=== PATIENT | female | born 1985 | race Caucasian/White ===

== ENCOUNTER 2022-08-30 16:51 | Inpatient (IN) ==
[2022-08-30] MEDS ORDERED: PROPOFOL 200 MG/20 ML VIAL IV ONE (17:01)
[2022-08-30] MEDS ORDERED: NITROGLYCERIN 0.6 MG/HR PATCH TD ONE (17:04)
[2022-08-30] MEDS ORDERED: INDOMETHACIN 25 MG CAPSULE PO ONE (17:04)
[2022-08-30] MEDS ORDERED: HYDROmorphone 1 MG/ML SYRINGE IV ONE (17:09)
[2022-08-30] MEDS ORDERED: MIDAZOLAM 2 MG/2 ML VIAL IV ONE (17:15)
[2022-08-30] MEDS ORDERED: LACTATED RINGERS 1,000 ML IV SCH ×2 (17:15→18:30)
--- NOTE | 2022-08-30 17:15 | Emergency Department Note ---
HPI General Chief complaint: Abdominal Pain Stated complaint: ERCP w/ Scarlett Time Seen by Provider: 08/30/22 17:12 Source: patient Mode of arrival: EMS Limitations: no limitations History of Present Illness HPI Narrative: 37-year-old female with no significant medical history and recent laparoscopic cholecystectomy with Dr. Thompson on 08/22 presents to the ER by ED to ED transfer for bile leak. She was evaluated at [facility] this morning after she woke up with severe abdominal pain. She was allegedly diagnosed with bile leak and underwent an ERCP with Dr. El and he was unable to pass the catheter. The procedure was aborted and at that point he spoke with Dr. Pantoja who accepted the patient for ERCP. The patient received Zosyn at approximately 1 PM this afternoon. She is currently hemodynamically stable and afebrile. Previous abdominal surgeries include a tubal ligation and appendectomy. Related Data Allergies Allergy/AdvReac Type Severity Reaction Status Date / Time No Known Drug Allergies Allergy Verified 08/30/22 19:38 Review of Systems ROS ROS Narrative: Narrative: All systems ED: reviewed and negative except as stated. [facility] Narrative Patient History Narrative: Narrative: Medical/Surgical/Family History All Active Problems (Updated 08/30/22 @ 22:42 by Jocelynn Jane PA-C) Bile leak, postoperative (Acute) Exam Narrative Narrative: General: AOx3, NAD, nontoxic appearing. Pleasant and conversant. HEENT: PERRL, EOMI, normocephalic. Moist mucous membranes. Normal facies and normal dentition. Chest: Symmetric, no pain to palpation Respiratory: Lungs clear to auscultation bilaterally. No respiratory distress. Unlabored breathing. Heart: Regular rate and rhythm, no murmurs/clicks/rubs. Abdomen: Deferred Extremities: Warm and well perfused. No edema. DP 2+ bilaterally. No venous stasis. Neuro: No focal deficits. Cranial nerves II-XII grossly normal. Skin: Warm dry, no rashes or lesions, no cyanosis. Psych: Normal mood and affect Heme/Lymph: No abnormal bruising General Limitations: no limitations Course Vital Signs Vital signs: Vital Signs Temperature 98.1 F 08/30/22 16:52 Pulse Rate 96 H 08/30/22 16:52 Respiratory Rate 18 08/30/22 16:52 Blood Pressure 144/90 08/30/22 16:52 Pulse Oximetry (%) 99 08/30/22 16:52 Oxygen Delivery Method Room Air 08/30/22 16:52 Temperature 98.1 F 08/30/22 18:11 Pulse Rate 99 H 08/30/22 20:20 Respiratory Rate 17 08/30/22 20:20 Blood Pressure 115/72 08/30/22 20:20 Pulse Oximetry (%) 95 08/30/22 20:20 Oxygen Delivery Method Room Air 08/30/22 20:20 Oxygen Flow Rate (L/min) 6 08/30/22 18:05 MDM MDM Narrative Medical decision making narrative: Bile leak Patient is going for an ERCP with Dr. Pantoja and will be admitted to the hospitalist service following her procedure. Dr. Pantoja is in the room evaluating the patient currently. She is admitted inpatient. Discharge Plan Patient/Caregiver Discharge Instructions Pt seen by [facility]/PA only: Yes Clinical Impression: Bile leak, postoperative Patient Disposition: Xfer As Outpt/Obs ([facility]) Discharge Date/Time: 08/30/22 17:20
[2022-08-30] MEDS ORDERED: IOPAMIDOL 100 ML BOTTLE IV ONE (18:16)
[2022-08-30] MEDS ORDERED: HYDROmorphone 0.5 MG/0.5 ML SYRINGE IV PRN (18:21)
[2022-08-30] MEDS ORDERED: ONDANSETRON 4 MG/2 ML VIAL IV PRN (18:22)
[2022-08-30] MEDS ORDERED: GENTAMICIN SULFATE 80 MG/2 ML VIAL IR ONE (18:33)
--- NOTE | 2022-08-30 18:39 | Internal Med History&Physical ---
HPI History of Present Illness Patient information: Note initiated : 08/30/22 at 6:38 pm Service Date, if different from initiated Date: [] Patient: Anyi Zhang a 37 y/o F admitted on 08/30/22 for ERCP w/ Scarlett. Chief Complaint: [] History of present illness: Ms. Zhang is a 37 year old Female with with a history of cholelithiasis who recently underwent a laparoscopic cholecystectomy. Early on the day of this admission, the patient developed severe abdominal pain for which she was seen at the [facility] emergency department. The patient was found to have a biliary leak, likely a complication from the recent cholecystectomy. An ERCP was attempted to stop the leak at that hospital however was not successful. The patient was transferred to [facility] at Dr. Pantoja's request to perform an ERCP and attempt to stop the biliary leak. Hospital medicine was later notified of this plan, I was reluctant to accept this patient given the failed ERCP at the [facility] however Dr. Pantoja felt the chances of complications were low and that he would be able to stop the biliary leak. The patient underwent repeat ERCP soon after arrival. Dr. Freeman feels that he was able to stop the leak with a stent placement. Following the ERCP, the patient will be admitted for observation following the procedure. Review of systems Constitutional: no fever, fatigue, or weight loss Gastrointestinal: Positive for abdominal pain Physical exam Head: Atraumatic, normal inspection. Eyes: normal appearance, no scleral icterus. Neck: full ROM Respiratory: no respiratory distress. Cardiovascular: Tachycardia GI/Abdominal: Tenderness present Extremities: full range of motion, nontender. Neurological: CN II-XII intact, intact motor, intact sensation. Psychiatric: normal mood. Skin: warm, normal color EXAM Constitutional Vitals: Temp Pulse Resp BP Pulse Ox O2 Del Method O2 Flow Rate 98.1 F 114 H 16 136/94 98 Room Air 6 08/30/22 18:10 08/30/22 18:10 08/30/22 18:10 08/30/22 18:10 08/30/22 18:10 08/30/22 18:10 08/30/22 18:05 A/P Narrative A/P Narrative: Assessment: 37-year-old female with a history of recent laparoscopic cholecyst ectomy complicated by bile duct leak who underwent ERCP and stent placement to fix the bile duct leak. #Bile duct leak status post ERCP 08/30/22 #Bile duct leak likely secondary to failed surgical stable #History of cholelithiasis status post recent laparoscopic cholecystectomy Plan -Analgesics as needed. -IV fluid for now. -Morning CBC, CMP, lipase. -GI following. -Disposition: Admit to observation. Time Spent With Patient Time: Total time spent is greater than 50% in coordination of care (as documented) at patient's floor/unit and/or counseling patient:
[2022-08-30] MEDS ORDERED: ACETAMINOPHEN 325 MG TABLET PO PRN (18:41)
[2022-08-30] MEDS ORDERED: IOPAMIDOL 100 ML BOTTLE IJ ONE (18:43)
[2022-08-30] MEDS: LACTATED RINGERS 1,000 ML IV SCH (20:12)
[2022-08-30] MEDS: 0.9 % SODIUM CHLORIDE 10 ML SYRINGE IV SCH (20:12)
[2022-08-30] MEDS: HYDROmorphone 0.5 MG/0.5 ML SYRINGE IV PRN (20:12)
[2022-08-31] MEDS: HYDROmorphone 0.5 MG/0.5 ML SYRINGE IV PRN ×4 (01:42→16:27)
[2022-08-31] MEDS: HYDROcodone/APAP 5/325MG TABLET PO PRN ×3 (04:27→13:34)
[2022-08-31] MEDS: 0.9 % SODIUM CHLORIDE 10 ML SYRINGE IV SCH ×3 (04:28→22:14)
[2022-08-31 06:14] LABS: Basophils # (Auto) 0.02 K/mcL (0.00-0.30); Basophils % (Auto) 0.1 % (0.0-2.0); Eosinophils # (Auto) 0.01 K/mcL (0.00-0.70); Eosinophils % (Auto) 0.1 % (0.0-7.0); Hematocrit 33.9 % (34.1-44.9); Hemoglobin 11.3 g/dL (11.2-15.7); Lymphocytes % (Auto) 5.8 % (15.5-49.0); Mean Cell Volume 93.6 fL (80.0-100.0); Mean Corpuscular HGB Conc 33.3 g/dL (31.0-36.0); Mean Platelet Volume 10.7 fL (8.8-12.5); Monocytes # (Auto) 1.18 K/mcL (0.10-0.90); Monocytes % (Auto) 7.6 % (1.0-12.0); Neutrophils % (Auto) 85.9 % (38.0-78.0); Platelet Count 223 K/mcL (140-440); RBC 3.62 M/mcL (3.59-5.38); WBC 15.5 K/mcL (4.5-11.0)
[2022-08-31 06:26] LABS: ALT/SGPT 37 U/L (<40); AST/SGOT 28 U/L (<32); Albumin 3.8 gm/dL (3.2-5.2); Albumin/Globulin Ratio 1.5 (1.0-2.3); Alkaline Phosphatase 44 U/L (39-117); Bilirubin,Total 0.6 mg/dL (0.1-1.0); Blood Urea Nitrogen 8 mg/dL (6-20); Calcium 8.6 mg/dL (8.6-10.4); Carbon Dioxide 22 mmol/L (22-30); Chloride 104 mmol/L (96-108); Globulin 2.5 gm/dL (2.2-3.7); Glomerular Filtration Rate 124; Glucose 114 mg/dL (70-105)
[2022-08-31] MEDS: LACTATED RINGERS 1,000 ML IV SCH ×2 (06:26→19:11)
--- NOTE | 2022-08-31 09:45 | Discharge Summary ---
Discharge Provider Provider IMPORTANT FOLLOW-UP INFORMATION FOR PCP: Patient information: Note initiated : 08/31/22 at 9:43 am Service Date, if different from initiated Date: [] Patient: Anyi Zhang 37 y/o F admitted on 08/30/22 for ERCP w/ Scarlett. Chief Complaint: [] Date of admission: 08/30/22 18:15 Discharge date: 08/31/22 Primary care physician: Faiza Vaca Consults: 08/30/22 17:24 Consult to Physician [CONS] Routine Comment: Consulting Provider: Rich Curtis Reason For Exam: Physician to Consult Consult to Physician [CONS] Routine Comment: Consulting Provider: Jose Pantoja Reason For Exam: Physician to Consult COURSE Hospital Course Hospital course: Ms. Zhang is a 37 year old Female with with a history of cholelithiasis who recently underwent a laparoscopic cholecystectomy. Early on the day of this admission, the patient developed severe abdominal pain for which she was seen at the [facility] emergency department. The patient was found to have a biliary leak, likely a complication from the recent cholecystectomy. An ERCP was attempted to stop the leak at that hospital however was not successful. The patient was transferred to [facility] at Dr. Pantoja's request to perform an ERCP and attempt to stop the biliary leak. Hospital medicine was later notified of this plan, I was re luctant to accept this patient given the failed ERCP at the [facility] however Dr. Pantoja felt the chances of complications were low and that he would be able to stop the biliary leak. The patient underwent repeat ERCP soon after arrival. Dr. Freeman feels that he was able to stop the leak with a stent placement. Following the ERCP, the patient will be admitted for observation following the procedure. 08/31 Patient's abdominal discomfort have improved, there was a mild increase in lipase however GI feels this is expected given the ERCP. She is able to tolerate oral intake. I spoke with Dr. Pantoja and he feels the patient can discharge to home today. The patient was discharged to home with family. Physical exam Head: Atraumatic, normal inspection. Eyes: normal appearance, no scleral icterus. Neck: full ROM Respiratory: no respiratory distress. Cardiovascular: Tachycardia GI/Abdominal: Tenderness present Extremities: full range of motion, nontender. Neurological: CN II-XII intact, intact motor, intact sensation. Psychiatric: normal mood. Skin: warm, normal color Discharge diagnosis: Bile duct leak Time Spent with Patient Time attestation: Total time spent providing and/or coordinating discharge services: Time spent: Less than 30 minutes EXAM Constitutional Vitals: Temp Pulse Resp BP Pulse Ox O2 Del Method O2 Flow Rate 97.9 F 89 17 106/67 95 Room Air 6 08/31/22 04:08/31/22 04:08/31/22 04:08/31/22 04:08/31/22 04:08/31/22 04:08/30/22 18:05 Discharge Data Data Completed and Pending Labs on day of discharge: Labs from last 24 hours 08/31/22 08/31/22 05:25 05:25 WBC 15.5 H RBC 3.62 Hgb 11.3 Hct 33.9 L MCV 93.6 MCH 31.2 MCHC 33.3 RDW 12.0 Plt Count 223 MPV 10.7 Immature Gran % (Auto) 0.5 Neut % (Auto) 85.9 H Lymph % (Auto) 5.8 L Summers % (Auto) 7.6 Eos % (Auto) 0.1 Baso % (Auto) 0.1 Lymph # (Auto) 0.90 L Summers # (Auto) 1.18 H Eos # (Auto) 0.01 Baso # (Auto) 0.02 Immature Gran # 0.08 H Absolute Neutrophils 13.26 H Sodium 136 Potassium 4.0 Chloride 104 Carbon Dioxide 22 Anion Gap 10.0 BUN 8 Creatinine 0.5 L GFR Calculation 124 Glucose 114 H Calcium 8.6 Total Bilirubin 0.6 AST 28 ALT 37 Alkaline Phosphatase 44 Total Protein 6.3 Albumin 3.8 Globulin 2.5 Albumin/Globulin Ratio 1.5 Lipase 459 H Discharge Plan Patient/Caregiver Discharge Instructions Activity: increase activity as tolerated Diet: Regular Diet Prescriptions: New hydrocodone-acetaminophen 5-325 mg Tablet 1 - 2 tab PO Q4H PRN (Reason: Abdominal Discomfort) Qty: 24 0RF Follow Up Plan Follow up with: Faiza Vaca MD [Primary Care Provider] - Jose Pantoja MD [Physician] - (Post hospital follow-up for GI bleed secondary to duodenal ulcer.) Patient Disposition: Home, Self-Care Overall status at discharge: patient is progressing back to baseline Discharge Orders: Discharge Order (Routine); Ordered 08/31/22 Ordered By: Rich Curtis
--- NOTE | 2022-08-31 13:49 | Internal Med Progress Note ---
SUBJECTIVE Subjective Patient information: Note initiated : 08/31/22 at 1:45 pm Service Date, if different from initiated Date: [] Patient: Anyi Zhang a 37 y/o F admitted on 08/30/22 for ERCP w/ Scarlett. Chief Complaint: [] Interval history: Ms. Zhang is a 37 year old Female with with a history of cholelithiasis who recently underwent a laparoscopic cholecystectomy. Early on the day of this admission, the patient developed severe abdominal pain for which she was seen at the [facility] emergency department. The patient was found to have a biliary leak, likely a complication from the recent cholecystectomy. An ERCP was attempted to stop the leak at that hospital however was not successful. The patient was transferred to [facility] at Dr. Pantoja's request to perform an ERCP and attempt to stop the biliary leak. Hospital medicine was later notified of this plan, I was reluctant to accept this patient given the failed ERCP at the [facility] however Dr. Pantoja felt the chances of complications were low and that he would be able to stop the biliary leak. The patient underwent repeat ERCP soon after arrival. Dr. Freeman feels that he was able to stop the leak with a stent placement. Following the ERCP, the patient will be admitted for observation following the procedure. 08/31 This morning the patient reported her abdominal pain had improved significantly. Lipase was elevated however gastroenterology did not feel that was unexpected given the recent procedures. Gastroenterology felt the patient was ready to discharge and discharge orders were placed however the patient later developed epigastric abdominal pain similar to when she first presented to the emergency department. Discharge canceled. Abdominal 1 view x-ray ordered. Physical exam Head: Atraumatic, normal inspection. Eyes: normal appearance, no scleral icterus. Neck: full ROM Respiratory: no respiratory distress. Cardiovascular: Tachycardia GI/Abdominal: Tenderness present Extremities: full range of motion, nontender. Neurological: CN II-XII intact, intact motor, intact sensation. Psychiatric: normal mood. Skin: warm, normal color Constitutional Vitals: Vital Signs Temp Pulse Resp BP Pulse Ox O2 Del Method O2 Flow Rate 98.0 F 78 20 126/81 96 Room Air 6 08/31/22 12:00 08/31/22 12:08/31/22 12:08/31/22 12:08/31/22 12:00 08/31/22 12:00 08/30/22 18:05 Period Temp Pulse Resp BP Sys/Child Pulse Ox O2 Del Method O2 Flow Rate Last 24 Hr 97.9 F-98.8 F 78-122 12 105-145/67-102 92-100 Nasal Cannula-Room Air 6-6 Intake and Output 08/31/22 08/31/22 08/31/22 03:59 11:59 19:59 Intake Total 450 1067 Output Total 770 Balance -320 1067 Weight 82.513 kg Intake & Output: Intake & Output 08/31/22 08/31/22 08/31/22 03:59 11:59 19:59 Intake Total 450 1067 Output Total 770 Balance -320 1067 Weight 82.513 kg Intake: IV 767 Lactated Ringers 1,000 ml @ 75 767 mls/hr IV .[id number] [facility] Rx#: [id number] Oral 450 300 Output: Void Amount 770 Other: Urine Appearance Clear Urine Color Yellow Urine Odor Normal OBJ DATA Labs 08/31/22 05:25 08/31/22 05:25 Labs: Abnormal Lab Results 08/31/22 08/31/22 05:25 05:25 WBC 15.5 H Hct 33.9 L Neut % (Auto) 85.9 H Lymph % (Auto) 5.8 L Lymph # (Auto) 0.90 L [place] # (Auto) 1.18 H Immature Gran # 0.08 H Absolute Neutrophils 13.26 H Creatinine 0.5 L Glucose 114 H Lipase 459 H Meds: Medications Acetaminophen (Acetaminophen 325 Mg Tablet) 650 mg PO Q6HP PRN; Protocol PRN Reason: Per Pain Protocol/Fever > 101 Hydrocodone Bitart/Acetaminophen (Hydrocodone/Apap 5/325mg Tablet) 1 tab PO Q4HP PRN; Protocol PRN Reason: Per Pain Protocol Last Admin: 08/31/22 13:34 Dose: 1 tab Hydromorphone HCl (Hydromorphone 0.5 Mg/0.5 Ml Syringe) 0.5 mg IV Q2HP PRN; Protocol PRN Reason: Per Pain Protocol Last Admin: 08/31/22 13:35 Dose: 0.5 mg Lactated Ringer's (Lactated Ringers) 1,000 mls @ 75 mls/hr IV .[id number] [facility] Last Admin: 08/31/22 06:26 Dose: 75 mls/hr Ondansetron HCl (Ondansetron 4 Mg/2 Ml Vial) 4 mg IV Q6HP PRN PRN Reason: Nausea And Vomiting Senna (Sennosides 1 Tablet) 2 tab PO HS PRN PRN Reason: constipation Sodium Chloride (0.9 % Sodium Chloride 10 Ml Syringe) 10 ml IV Q8 [facility] Last Admin: 08/31/22 13:34 Dose: 10 ml A/P Narrative A/P Narrative: Assessment: 37-year-old female with a history of recent laparoscopic cholecystectomy complicated by bile duct leak who underwent ERCP and stent placement to fix the bile duct leak. #Abdominal pain #Elevated lipase #Bile duct leak status post ERCP 08/30/22 with biliary stent placement #Bile duct leak likely secondary to failed surgical stable from recent laparoscopic cholecystostomy #History of cholelithiasis status post recent laparoscopic cholecystectomy Plan -Abdominal 1 view x-ray, consider CT abdomen. -Analgesics as needed. -IV fluid. -Clear liquid diet. -Disposition: Inpatient MedSurg. Time Spent With Patient Time: Total time spent is greater than 50% in coordination of care (as documented) at patient's floor/unit and/or counseling patient:
--- NOTE | 2022-08-31 15:22 | XRay Report ---
INDICATION: Abdominal pain, recent ERCP with biliary stent. TECHNIQUE: Supine abdomen. COMPARISON: None FINDINGS:Bowel gas pattern is unremarkable. There is no evidence for mechanical small bowel obstruction. No biliary or portal venous gas. No pneumatosis. Incidental note is made of a biliary catheter in the right upper quadrant IMPRESSION: Negative bowel gas pattern Interpreted and Authenticated by: Sajan Elaine 08/31/22
[2022-08-31] MEDS ORDERED: LACTATED RINGERS 1,000 ML IV SCH (16:38)
[2022-08-31] MEDS ORDERED: HYDROmorphone 0.5 MG/0.5 ML SYRINGE IV PRN ×2 (16:38→16:46)
[2022-08-31] MEDS ORDERED: HYDROmorphone 0.5 MG/0.5 ML SYRINGE ONE (16:55)
[2022-08-31 17:42] LABS: ALT/SGPT 37 U/L (<40); AST/SGOT 28 U/L (<32); Albumin 4.1 gm/dL (3.2-5.2); Albumin/Globulin Ratio 1.3 (1.0-2.3); Alkaline Phosphatase 49 U/L (39-117); Bilirubin,Direct 0.2 mg/dL (<0.3); Bilirubin,Total 0.7 mg/dL (0.1-1.0); Blood Urea Nitrogen 8 mg/dL (6-20); Calcium 8.6 mg/dL (8.6-10.4); Carbon Dioxide 22 mmol/L (22-30); Chloride 101 mmol/L (96-108); Globulin 3.1 gm/dL (2.2-3.7); Glomerular Filtration Rate 117; Glucose 101 mg/dL (70-105); Lactate Dehydrogenase 161 U/L (135-225); Phosphorous 2.2 mg/dL (2.5-4.5); Triglycerides 98 mg/dL (<150)
--- NOTE | 2022-08-31 18:31 | Cat Scan Report ---
INDICATION: Severe abdominal pain after ERCP. This patient has a history of bile leak following cholecystectomy. History is not provided as to whether this was due to injury to the common bile duct or a duct of Luschka. ERCP was performed and a common bile duct stent was placed COMPARISON: Plain film examination dated 08/31/2022 TECHNIQUE: Axial images were obtained through the abdomen and pelvis. Sagittally and coronally reformatted images. 80 mL Isovue 370 injected intravenously. Oral contrast material was not administered FINDINGS: Lung bases:Negative. No pulmonary parenchymal nodule. No pleural fluid or pericardial fluid Liver:Negative. No focal intrahepatic mass. No focal abnormality. Liver contour is smooth. No evidence for cirrhosis Gallbladder, bilary:Previous cholecystectomy. There is a common bile duct stent in place. There is mild pneumobilia. There is inflammatory change and fluid within the gallbladder fossa and twan hepatis. There is moderate peripancreatic inflammatory change and mild fluid. There is mild to moderate fluid within the pelvis. ALPHONSO values are in the 20s. This is consistent with bile leak but is not suggestive of hemoperitoneum. There is no pneumoperitoneum. There are no previous examinations available and it is not determinable whether this intraperitoneal fluid is increasing or decreasing. Spleen:16 mm low-density lesion in the anterior and lateral spleen is consistent with a benign cyst Pancreas:There is no pancreatic mass. There is mild pancreatic parenchymal low density within the body and head of the pancreas. Interstitial edematous pancreatitis is possible. There is no pseudocyst. No pancreatic duct dilatation. No evidence for pancreatic necrosis or abscess. Adrenal glands:Negative Kidneys,ureters,bladder:Probable 2 mm nonobstructing right upper pole renal stone. Kidneys are otherwise negative. No solid or cystic mass. No hydronephrosis. No hydroureter. No ureteral calculus. No bladder stone. No detectable bladder mass. Gastrointestinal:No detectable colonic mass. There is no diverticulitis. Negative small bowel. No mechanical small bowel obstruction. No bowel wall thickening. No focal abnormality. Negative stomach and duodenum. No focal abnormality. Appendix: The appendix is now well visualized. No evidence for appendicitis Vascular:Negative abdominal aorta. Superior mesenteric artery and celiac trunk are normal. Normal opacification of the inferior mesenteric artery Lymphatic:No retroperitoneal or mesenteric adenopathy Mesentery, peritoneum: No pneumoperitoneum. No intra-abdominal abscess. Reproductive:Uterus is retroflexed. No adnexal mass Musculoskeletal:No lumbar compression fractures. Sacrum and pelvis are negative. No hip fracture. No abdominal wall or inguinal hernia IMPRESSION: 1. History of postcholecystectomy bile leak. ERCP performed and common bile duct stent placed 2. There is intraperitoneal fluid within the pelvis. There is inflammatory change and fluid within the gallbladder fossa, twan hepatis, and peripancreatic spaces. 3. There is no pneumoperitoneum. There is no intra-abdominal abscess 4. Pancreas appears somewhat edematous, especially the head and body. Interstitial edematous pancreatitis is possible. There is no pseudocyst or evidence for pancreatic necrosis 5. Probable 2 mm nonobstructing right upper pole renal stone 6. Benign splenic cyst 7. Mild post stent pneumobilia The exam was performed using radiation dose optimization techniques including, but not limited to, automated exposure control, adjustment of the mA and/or kV according to patient size and use of iterative reconstruction technique. Interpreted and Authenticated by: Sajan Elaine 08/31/22
[2022-08-31] MEDS ORDERED: HYDROmorphone 1 MG/ML SYRINGE ONE (18:47)
[2022-08-31] MEDS: ONDANSETRON 4 MG/2 ML VIAL IV PRN (18:51)
[2022-08-31] MEDS ORDERED: fentaNYL 100 MCG/2 ML VIAL IV PRN (19:16)
[2022-08-31] MEDS ORDERED: NALOXONE HCL 0.4 MG/ML VIAL IV PRN (19:19)
[2022-08-31] MEDS: fentaNYL 100 MCG/2 ML VIAL IV PRN ×3 (20:08→22:47)
[2022-08-31] MEDS ORDERED: ACETAMINOPHEN 1,000 MG/100 ML BAG IV SCH (22:15)
[2022-08-31] MEDS ORDERED: PROMETHAZINE 25 MG/ML VIAL ONE (22:24)
[2022-08-31] MEDS ORDERED: KETOROLAC 15 MG/ML VIAL ONE (22:25)
[2022-08-31] MEDS ORDERED: ACETAMINOPHEN 1,000 MG/100 ML BAG IV ONE (22:25)
[2022-08-31] MEDS: PROMETHAZINE 25 MG/ML VIAL IV PRN (22:27)
[2022-08-31] MEDS: KETOROLAC 30 MG/ML VIAL IV SCH (22:34)
[2022-08-31] MEDS: ACETAMINOPHEN 1,000 MG/100 ML BAG IV SCH (23:05)
[2022-09-01] MEDS ORDERED: KETOROLAC 30 MG/ML VIAL IV SCH
[2022-09-01] MEDS: LACTATED RINGERS 1,000 ML IV SCH ×5 (00:56→22:21)
[2022-09-01] MEDS: KETOROLAC 30 MG/ML VIAL IV SCH ×2 (01:09→05:17)
[2022-09-01] MEDS ORDERED: KETOROLAC 15 MG/ML VIAL ONE ×2 (01:09→05:12)
[2022-09-01] MEDS: fentaNYL 100 MCG/2 ML VIAL IV PRN ×18 (01:25→23:37)
[2022-09-01] MEDS: ONDANSETRON 4 MG/2 ML VIAL IV PRN (03:12)
[2022-09-01] MEDS ORDERED: ACETAMINOPHEN 1,000 MG/100 ML BAG IV ONE (05:13)
[2022-09-01] MEDS: ACETAMINOPHEN 1,000 MG/100 ML BAG IV SCH ×3 (05:27→21:28)
[2022-09-01] MEDS: 0.9 % SODIUM CHLORIDE 10 ML SYRINGE IV SCH ×3 (06:01→21:29)
[2022-09-01 07:19] LABS: ALT/SGPT 26 U/L (<40); AST/SGOT 20 U/L (<32); Albumin 3.7 gm/dL (3.2-5.2); Albumin/Globulin Ratio 1.5 (1.0-2.3); Alkaline Phosphatase 43 U/L (39-117); Bilirubin,Direct < 0.2 mg/dL (0-0.3); Bilirubin,Total 0.5 mg/dL (0.1-1.0); Blood Urea Nitrogen 10 mg/dL (6-20); Calcium 8.2 mg/dL (8.6-10.4); Carbon Dioxide 24 mmol/L (22-30); Chloride 102 mmol/L (96-108); Globulin 2.4 gm/dL (2.2-3.7); Glomerular Filtration Rate 124; Glucose 101 mg/dL (70-105); Lactate Dehydrogenase 144 U/L (135-225); Phosphorous 3.3 mg/dL (2.5-4.5); Triglycerides 90 mg/dL (<150); Uric Acid 1.8 mg/dL (2.5-8.0)
[2022-09-01 07:49] LABS: Basophils # (Auto) 0.03 K/mcL (0.00-0.30); Basophils % (Auto) 0.2 % (0.0-2.0); Eosinophils # (Auto) 0.11 K/mcL (0.00-0.70); Eosinophils % (Auto) 0.7 % (0.0-7.0); Hematocrit 35.6 % (34.1-44.9); Lymphocytes # (Auto) 1.32 K/mcL (1.50-4.80); Lymphocytes % (Auto) 8.9 % (15.5-49.0); Mean Cell Volume 95.7 fL (80.0-100.0); Mean Corpuscular HGB Conc 33.7 g/dL (31.0-36.0); Mean Platelet Volume 10.9 fL (8.8-12.5); Monocytes % (Auto) 6.1 % (1.0-12.0); Neutrophils % (Auto) 83.6 % (38.0-78.0); Platelet Count 195 K/mcL (140-440); RBC 3.72 M/mcL (3.59-5.38); Red Cell Distribution Width 12.1 % (11.5-14.5); WBC 14.9 K/mcL (4.5-11.0)
[2022-09-01] MEDS: PROMETHAZINE 25 MG/ML VIAL IV PRN ×3 (09:08→22:04)
[2022-09-01] MEDS ORDERED: KETOROLAC 15 MG/ML VIAL IV SCH (12:00)
--- NOTE | 2022-09-01 14:42 | Internal Med Progress Note ---
SUBJECTIVE Subjective Patient information: Note initiated : 09/01/22 at 2:36 pm Service Date, if different from initiated Date: [] Patient: Anyi Zhang a 37 y/o F admitted on 08/31/22 for ERCP w/ Scarlett. Chief Complaint: [] Interval history: Ms. Zhang is a 37 year old Female with with a history of cholelithiasis who recently underwent a laparoscopic cholecystectomy. Early on the day of this admission, the patient developed severe abdominal pain for which she was seen at the [facility] emergency department. The patient was found to have a biliary leak, likely a complication from the recent cholecystectomy. An ERCP was attempted to stop the leak at that hospital however was not successful. The patient was transferred to [facility] at Dr. Pantoja's request to perform an ERCP and attempt to stop the biliary leak. Hospital medicine was later notified of this plan, I was reluctant to accept this patient given the failed ERCP at the [facility] however Dr. Pantoja felt the chances of complications were low and that he would be able to stop the biliary leak. The patient underwent repeat ERCP soon after arrival. Dr. Freeman feels that he was able to stop the leak with a stent placement. Following the ERCP, the patient will be admitted for observation following the procedure. 08/31 This morning the patient reported her abdominal pain had improved significantly. Lipase was modestly elevated however gastroenterology did not feel that was unexpected given the recent procedures. Gastroenterology felt the patient was ready to discharge and discharge orders were placed however the patient later developed epigastric abdominal pain similar to when she first presented to the emergency department. Discharge canceled. Abdominal 1 view x-ray ordered and did not show any acute changes. Lipase resulted significantly higher in the afternoon and a CT abdomen pelvis with IV contrast showed the pancreas to be somewhat edema at this, especially in the pancreatic head and pancreatic body. There was also intraperitoneal fluid in the pelvis and inflammatory changes and fluid within the gallbladder fossa, twan hepatis and peripancreatic spaces. Patient's abdominal pain is likely secondary to acute pancreatitis secondary to the recent ERCPs. IV fluids were increased,. Dilaudid IV as needed was increased however the patient felt that she had spasms secondary to Dilaudid therefore this was changed to fentanyl IV as needed. The patient was transferred to the PCU for close monitoring. 09/01 Vitals stable overnight, abdominal pain about the same as yesterday. Fentanyl working better for pain control and Dilaudid but wearing off quickly. Scheduled acetaminophen IV every 8 hours. Increase fentanyl frequency, fentanyl FIRE PROTECTION EQUIPMENT TECHNICIAN is not available per pharmacy. Continue IV fluid and close monitoring. Physical exam Head: Atraumatic, normal inspection. Eyes: normal appearance, no scleral icterus. Neck: full ROM Respiratory: no respiratory distress. Cardiovascular: Regular heart rate GI/Abdominal: Tenderness present Extremities: full range of motion, nontender. Neurological: CN II-XII intact, intact motor, intact sensation. Psychiatric: normal mood. Skin: warm, normal color Constitutional Vitals: Vital Signs Temp Pulse Resp BP Pulse Ox O2 Del Method O2 Flow Rate 98.2 F 72 15 136/81 97 Room Air 0 09/01/22 08:01 09/01/22 10:01 09/01/22 10:01 09/01/22 10:01 09/01/22 10:01 09/01/22 10:01 09/01/22 06:01 Period Temp Pulse Resp BP Sys/Child Pulse Ox O2 Del Method O2 Flow Rate Last 24 Hr 97.7 F-99.0 F 61-101 10-28 121-142/79-91 94-99 Room Air-Room Air 0-0 Intake and Output 09/01/22 09/01/22 09/01/22 03:59 11:59 19:59 Intake Total 1100 2100 Output Total 575 400 Balance 525 1700 Weight 82.599 kg Intake & Output: Intake & Output 09/01/22 09/01/22 09/01/22 03:59 11:59 19:59 Intake Total 1100 2100 Output Total 575 400 Balance 525 1700 Weight 82.599 kg Intake: IV 1100 2100 Lactated Ringers 1,000 ml @ 200 1000 2000 mls/hr IV .Q5H [facility] Rx#: [id number] Output: Void Amount 575 400 Other: Urine Appearance Clear Clear Urine Color Dark Yellow Yellow Urine Odor Strong # Bowel Movements 0 # Emeses 1 OBJ DATA Labs 09/01/22 06:54 09/01/22 05:08 Labs: Abnormal Lab Results 09/01/22 09/01/22 08/31/22 06:54 05:08 16:52 WBC 14.9 H Hct Neut % (Auto) 83.6 H Lymph % (Auto) 8.9 L Lymph # (Auto) 1.32 L [place] # (Auto) Immature Gran # 0.07 H Absolute Neutrophils 12.43 H Creatinine 0.5 L Glucose Uric Acid 1.8 L 2.0 L Calcium 8.2 L Phosphorus 2.2 L C-Reactive Protein 1.80 H Lipase 08/31/22 08/31/22 05:25 05:25 WBC 15.5 H Hct 33.9 L Neut % (Auto) 85.9 H Lymph % (Auto) 5.8 L Lymph # (Auto) 0.90 L [place] # (Auto) 1.18 H Immature Gran # 0.08 H Absolute Neutrophils 13.26 H Creatinine 0.5 L Glucose 114 H Uric Acid Calcium Phosphorus C-Reactive Protein Lipase 459 H Meds: Medications Hydrocodone Bitart/Acetaminophen (Hydrocodone/Apap 5/325mg Tablet) 1 tab PO Q4HP PRN; Protocol PRN Reason: Per Pain Protocol Last Admin: 08/31/22 13:34 Dose: 1 tab Fentanyl (Fentanyl 100 Mcg/2 Ml Vial) 50 mcg IV Q30M PRN; Protocol PRN Reason: Per Pain Protocol Last Admin: 09/01/22 14:30 Dose: 50 mcg Lactated Ringer's (Lactated Ringers) 1,000 mls @ 200 mls/hr IV .Q5H [facility] Last Admin: 09/01/22 11:45 Dose: 200 mls/hr Acetaminophen (Ofirmev) 1,000 mg in 100 mls @ 200 mls/hr IV Q8 [facility]; Protocol Last Admin: 09/01/22 13:25 Dose: 200 mls/hr Ketorolac Tromethamine (Ketorolac 15 Mg/Ml Vial) 15 mg IV Q6HP PRN PRN Reason: moderate pain Naloxone HCl (Naloxone Hcl 0.4 Mg/Ml Vial) 0.4 mg IV Q10M PRN PRN Reason: Opiate Reversal Ondansetron HCl (Ondansetron 4 Mg/2 Ml Vial) 4 mg IV Q6HP PRN PRN Reason: Nausea And Vomiting Last Admin: 09/01/22 03:12 Dose: 4 mg Promethazine HCl (Promethazine 25 Mg/Ml Vial) 12.5 mg IV Q4HP PRN PRN Reason: Nausea And Vomiting Last Admin: 09/01/22 09:08 Dose: 12.5 mg Senna (Sennosides 1 Tablet) 2 tab PO HS PRN PRN Reason: constipation Sodium Chloride (0.9 % Sodium Chloride 10 Ml Syringe) 10 ml IV Q8 [facility] Last Admin: 09/01/22 06:01 Dose: Not Given A/P Narrative A/P Narrative: Assessment: 37-year-old female with a history of recent laparoscopic cholecystectomy complicated by bile duct leak who underwent ERCP and stent placement to fix the bile duct leak. #Acute post ERCP pancreatitis #Bile duct leak status status post ERCP 08/30/22 with biliary stent placement #History of cholelithiasis status post recent laparoscopic cholecystectomy lik aracely complicated by surgical staple failure resulting in bile duct leak Plan -Scheduled Tylenol IV, Toradol IV as needed, oxycodone as needed, fentanyl IV as needed. -Continue IV fluid for acute pancreatitis. -Monitor electrolytes, replace as needed. -Monitor nutritional status. -Clear liquid diet for now. -Continuous pulse oximetry while receiving high-dose opioids. -DVT prophylaxis: Lovenox -CODE STATUS: Full -Disposition: Currently inpatient PCU, if the patient worsens clinically will attempt transfer to higher level of care. Time Spent With Patient Time: Total time spent is greater than 50% in coordination of care (as documented) at patient's floor/unit and/or counseling patient:
[2022-09-01] MEDS: KETOROLAC 15 MG/ML VIAL IV PRN ×2 (17:10→23:07)
[2022-09-01] MEDS: oxyCODONE HCL 5 MG TABLET PO PRN ×2 (18:38→22:03)
[2022-09-02] MEDS: fentaNYL 100 MCG/2 ML VIAL IV PRN ×19 (00:59→22:56)
[2022-09-02] MEDS: oxyCODONE HCL 5 MG TABLET PO PRN ×7 (02:22→22:57)
[2022-09-02] MEDS: LACTATED RINGERS 1,000 ML IV SCH ×5 (03:48→22:06)
[2022-09-02] MEDS: KETOROLAC 15 MG/ML VIAL IV PRN ×3 (05:14→19:50)
[2022-09-02] MEDS: ACETAMINOPHEN 1,000 MG/100 ML BAG IV SCH ×3 (05:15→22:02)
[2022-09-02] MEDS: 0.9 % SODIUM CHLORIDE 10 ML SYRINGE IV SCH ×3 (05:49→22:13)
[2022-09-02 06:01] LABS: Basophils # (Auto) 0.04 K/mcL (0.00-0.30); Basophils % (Auto) 0.2 % (0.0-2.0); Eosinophils # (Auto) 0.18 K/mcL (0.00-0.70); Eosinophils % (Auto) 1.1 % (0.0-7.0); Hematocrit 35.5 % (34.1-44.9); Hemoglobin 11.9 g/dL (11.2-15.7); Lymphocytes # (Auto) 0.89 K/mcL (1.50-4.80); Lymphocytes % (Auto) 5.2 % (15.5-49.0); Mean Cell Volume 96.7 fL (80.0-100.0); Mean Corpuscular HGB Conc 33.5 g/dL (31.0-36.0); Monocytes # (Auto) 1.06 K/mcL (0.10-0.90); Monocytes % (Auto) 6.2 % (1.0-12.0); Neutrophils % (Auto) 86.9 % (38.0-78.0); Platelet Count 175 K/mcL (140-440); RBC 3.67 M/mcL (3.59-5.38); Red Cell Distribution Width 11.9 % (11.5-14.5); WBC 17.1 K/mcL (4.5-11.0)
[2022-09-02 06:31] LABS: ALT/SGPT 23 U/L (<40); AST/SGOT 21 U/L (<32); Albumin 3.3 gm/dL (3.2-5.2); Albumin/Globulin Ratio 1.3 (1.0-2.3); Alkaline Phosphatase 48 U/L (39-117); Bilirubin,Direct 0.5 mg/dL (<0.3); Bilirubin,Total 0.9 mg/dL (0.1-1.0); Blood Urea Nitrogen 5 mg/dL (6-20); Calcium 7.9 mg/dL (8.6-10.4); Carbon Dioxide 27 mmol/L (22-30); Chloride 100 mmol/L (96-108); Globulin 2.5 gm/dL (2.2-3.7); Glomerular Filtration Rate 124; Glucose 79 mg/dL (70-105); Lactate Dehydrogenase 178 U/L (135-225); Triglycerides 67 mg/dL (<150); Uric Acid 2.2 mg/dL (2.5-8.0)
[2022-09-02] MEDS: ENOXAPARIN 40 MG/0.4 ML SYRINGE SQ SCH (07:51)
--- NOTE | 2022-09-02 08:39 | Internal Med Progress Note ---
SUBJECTIVE Subjective Patient information: Note initiated : 09/02/22 at 8:37 am Service Date, if different from initiated Date: [] Patient: Anyi Zhang a 37 y/o F admitted on 08/31/22 for ERCP w/ Scarlett. Chief Complaint: [] Interval history: Ms. Zhang is a 37 year old Female with with a history of cholelithiasis who recently underwent a laparoscopic cholecystectomy. Early on the day of this admission, the patient developed severe abdominal pain for which she was seen at the [facility] emergency department. The patient was found to have a biliary leak, likely a complication from the recent cholecystectomy. An ERCP was attempted to stop the leak at that hospital however was not successful. The patient was transferred to [facility] at Dr. Pantoja's request to perform an ERCP and attempt to stop the biliary leak. Hospital medicine was later notified of this plan, I was reluctant to accept this patient given the failed ERCP at the [facility] however Dr. Pantoja felt the chances of complications were low and that he would be able to stop the biliary leak. The patient underwent repeat ERCP soon after arrival. Dr. Freeman feels that he was able to stop the leak with a stent placement. Following the ERCP, the patient will be admitted for observation following the procedure. 08/31 This morning the patient reported her abdominal pain had improved significantly. Lipase was modestly elevated however gastroenterology did not feel that was unexpected given the recent procedures. Gastroenterology felt the patient was ready to discharge and discharge orders were placed however the patient later developed epigastric abdominal pain similar to when she first presented to the emergency department. Discharge canceled. Abdominal 1 view x-ray ordered and did not show any acute changes. Lipase resulted significantly higher in the afternoon and a CT abdomen pelvis with IV contrast showed the pancreas to be somewhat edema at this, especially in the pancreatic head and pancreatic body. There was also intraperitoneal fluid in the pelvis and inflammatory changes and fluid within the gallbladder fossa, twan hepatis and peripancreatic spaces. Patient's abdominal pain is likely secondary to acute pancreatitis secondary to the recent ERCPs. IV fluids were increased,. Dilaudid IV as needed was increased however the patient felt that she had spasms secondary to Dilaudid therefore this was changed to fentanyl IV as needed. The patient was transferred to the PCU for close monitoring. 09/01 Vitals stable overnight, abdominal pain about the same as yesterday. Fentanyl working better for pain control and Dilaudid but wearing off quickly. Scheduled acetaminophen IV every 8 hours. Increase fentanyl frequency, fentanyl ANESTHESIOLOGIST ATTENDING is not available per pharmacy. Continue IV fluid and close monitoring. 09/02 High-grade temperatures overnight, white blood cell count increased to 17.1, these changes are likely secondary to acute pancreatitis not infection. Patient 's abdominal discomfort appears to have plateaued. Continue analgesics, IV fluids, clear liquid diet and advance as tolerated and supportive cares. Physical exam Head: Atraumatic, normal inspection. Eyes: normal appearance, no scleral icterus. Neck: full ROM Respiratory: no respiratory distress. Cardiovascular: Regular heart rate GI/Abdominal: Tenderness present, mild rebound tenderness present. Extremities: full range of motion, nontender. Neurological: CN II-XII intact, intact motor, intact sensation. Psychiatric: normal mood. Skin: warm, normal color Constitutional Vitals: Vital Signs Temp Pulse Resp BP Pulse Ox O2 Del Method O2 Flow Rate 99.3 F H 90 14 128/76 93 Room Air 0 09/02/22 06:01 09/02/22 06:01 09/02/22 06:01 09/02/22 06:01 09/02/22 06:01 09/02/22 04:01 09/01/22 06:01 Period Temp Pulse Resp BP Sys/Child Pulse Ox O2 Del Method O2 Flow Rate Last 24 Hr 98.4 F-99.4 F 67-107 13-18 122-138/76-90 91-98 Room Air-Room A ir Intake and Output 09/01/22 09/02/22 09/02/22 19:59 03:59 11:59 Intake Total 1100 2200 100 Output Total 800 1250 Balance 300 950 100 Weight 84.912 kg Intake & Output: Intake & Output 09/01/22 09/02/22 09/02/22 19:59 03:59 11:59 Intake Total 1100 2200 100 Output Total 800 1250 Balance 300 950 100 Weight 84.912 kg Intake: IV 1100 2100 100 Lactated Ringers 1,000 ml @ 200 1000 2000 mls/hr IV .Q5H [facility] Rx#: [id number] Oral 100 Output: Void Amount 800 1250 Other: Urine Appearance Clear Clear Urine Color Yellow Dark Yellow Urine Odor Normal Normal OBJ DATA Labs 09/02/22 05:17 09/02/22 05:17 Labs: Abnormal Lab Results 09/02/22 09/02/22 09/01/22 05:17 05:17 06:54 WBC 17.1 H 14.9 H Hct Neut % (Auto) 86.9 H 83.6 H Lymph % (Auto) 5.2 L 8.9 L Lymph # (Auto) 0.89 L 1.32 L [place] # (Auto) 1.06 H Immature Gran # 0.07 H 0.07 H Absolute Neutrophils 14.85 H 12.43 H BUN 5 L Creatinine 0.5 L Glucose Uric Acid 2.2 L Calcium 7.9 L Phosphorus 2.0 L Direct Bilirubin 0.5 H C-Reactive Protein Total Protein 5.8 L Lipase 09/01/22 08/31/22 08/31/22 05:08 16:52 05:25 WBC 15.5 H Hct 33.9 L Neut % (Auto) 85.9 H Lymph % (Auto) 5.8 L Lymph # (Auto) 0.90 L [place] # (Auto) 1.18 H Immature Gran # 0.08 H Absolute Neutrophils 13.26 H BUN Creatinine 0.5 L Glucose Uric Acid 1.8 L 2.0 L Calcium 8.2 L Phosphorus 2.2 L Direct Bilirubin C-Reactive Protein 1.80 H Total Protein Lipase 08/31/22 05:25 WBC Hct Neut % (Auto) Lymph % (Auto) Lymph # (Auto) [place] # (Auto) Immature Gran # Absolute Neutrophils BUN Creatinine 0.5 L Glucose 114 H Uric Acid Calcium Phosphorus Direct Bilirubin C-Reactive Protein Total Protein Lipase 459 H Meds: Medications Enoxaparin Sodium (Enoxaparin 40 Mg/0.4 Ml Syringe) 40 mg SQ DAILY [facility] Last Admin: 09/02/22 07:51 Dose: 40 mg Fentanyl (Fentanyl 100 Mcg/2 Ml Vial) 50 mcg IV Q30M PRN; Protocol PRN Reason: Per Pain Protocol Last Admin: 09/02/22 05:51 Dose: 50 mcg Lactated Ringer's (Lactated Ringers) 1,000 mls @ 200 mls/hr IV .Q5H [facility] Last Admin: 09/02/22 03:48 Dose: 200 mls/hr Acetaminophen (Ofirmev) 1,000 mg in 100 mls @ 200 mls/hr IV Q8 [facility]; Protocol Last Infusion: 09/02/22 05:49 Dose: Infused Ketorolac Tromethamine (Ketorolac 15 Mg/Ml Vial) 15 mg IV Q6HP PRN PRN Reason: moderate pain Last Admin: 09/02/22 05:14 Dose: 15 mg Naloxone HCl (Naloxone Hcl 0.4 Mg/Ml Vial) 0.4 mg IV Q10M PRN PRN Reason: Opiate Reversal Ondansetron HCl (Ondansetron 4 Mg/2 Ml Vial) 4 mg IV Q6HP PRN PRN Reason: Nausea And Vomiting Last Admin: 09/01/22 03:12 Dose: 4 mg Oxycodone HCl (Oxycodone Hcl 5 Mg Tablet) 5 mg PO Q4HP PRN; Protocol PRN Reason: Per Pain Protocol Last Admin: 09/02/22 05:52 Dose: 5 mg Promethazine HCl (Promethazine 25 Mg/Ml Vial) 12.5 mg IV Q4HP PRN PRN Reason: Nausea And Vomiting Last Admin: 09/01/22 22:04 Dose: 12.5 mg Senna (Sennosides 1 Tablet) 2 tab PO HS PRN PRN Reason: constipation Sodium Chloride (0.9 % Sodium Chloride 10 Ml Syringe) 10 ml IV Q8 TIFFANIE Last Admin: 09/02/22 05:49 Dose: Not Given A/P Narrative A/P Narrative: Assessment: 37-year-old female with a history of recent laparoscopic cholecystectomy complicated by bile duct leak who underwent ERCP and stent placement to fix the bile duct leak. #Acute post ERCP pancreatitis #Bile duct leak status status post ERCP 08/30/22 with biliary stent placement #History of cholelithiasis status post recent laparoscopic cholecystectomy mariia garcia complicated by surgical staple failure resulting in bile duct leak Plan -Scheduled Tylenol IV, Toradol IV as needed, oxycodone as needed, fentanyl IV as needed. -IV fluid. -Monitor electrolytes, replace as needed. -Monitor nutritional status. -Clear liquid diet, advance as tolerated. -Continuous pulse oximetry while receiving high-dose opioids. -DVT prophylaxis: Lovenox -CODE STATUS: Full -Disposition: Currently inpatient PCU, if the patient worsens clinically will attempt transfer to higher level of care. Time Spent With Patient Time: Total time spent is greater than 50% in coordination of care (as documented) at patient's floor/unit and/or counseling patient:
[2022-09-02] MEDS: PROMETHAZINE 25 MG/ML VIAL IV PRN ×2 (11:17→17:57)
--- NOTE | 2022-09-02 12:33 | ERCP Procedure Note ---
ERCP Procedure Note Procedure Information Patient information: Note initiated : 09/02/22 at 12:30 pm Patient: Anyi Zhang 37 y/o F admitted on 08/31/22 for ERCP w/ Pantoja. Pre-op diagnosis general: Bile leak. Post-op diagnosis general: Bile leak. Date of Procedure: 08/30/22 Procedure: ercp w/ papillotomy, stent placement Procedure narrative: The procedures, alternatives and risks were discussed with the patient and the patient's questions were answered. With endoscopist-administered intravenous sedation, the Olympus side viewing operating duodenoscope was introduced into the esophagus and advanced to the second part of the duodenum without difficulty. The ampulla of Vater was identified and a papillotomy was performed. The bile duct was selectively cannulated taking care to avoid the pancreatic duct and cholangiogram obtained. The bile leak was purposefully not identified to avoid infection. A 10 Fr x 7cm Biliary stent was placed. The scope was withdrawn. Assessment: Bile leak.
[2022-09-02] MEDS ORDERED: LACTATED RINGERS 1,000 ML IV SCH (12:34)
--- NOTE | 2022-09-02 17:04 | Internal Med Progress Note ---
SUBJECTIVE Subjective Patient information: Note initiated : 09/02/22 at 4:59 pm Service Date, if different from initiated Date: [] Patient: Anyi Zhang a 37 y/o F admitted on 08/31/22 for ERCP w/ Scarlett. Chief Complaint: [] Principal diagnosis: Acute pancreatitis after bile leak Interval history: 37 year old female who underwent cholecystectomy and was transferred to [facility] after failed attempt at ERCP with biliary stent placement at outside hospital. ERCP with papillotomy and biliary stent placement performed 08/30 with improvement in symptoms; however, patient developed worsening epigastric pain and lipase was found to quite elevated at 12,000+ 08/31 so she was admitted for post ERCP pancreatitis. Per nursing, her demands for fentanyl IV have lessened a bit and she is taking in a bit of clear liquids. She is requiring oxycodone PO. She has worsening leukocytosis 17,000 today. Constitutional Vitals: Vital Signs Temp Pulse Resp BP Pulse Ox O2 Del Method O2 Flow Rate 98.1 F 112 H 22 130/81 94 Room Air 0 09/02/22 16:37 09/02/22 16:37 09/02/22 16:37 09/02/22 16:37 09/02/22 16:37 09/02/22 16:37 09/01/22 06:01 Period Temp Pulse Resp BP Sys/Child Pulse Ox O2 Del Method O2 Flow Rate Last 24 Hr 98.1 F-99.3 F 67-112 13-22 122-137/76-92 91-98 Room Air-Room Air Intake and Output 09/02/22 09/02/22 09/02/22 03:59 11:59 19:59 Intake Total 2200 1220 1017 Output Total 1250 500 400 Balance 950 720 617 Weight 187 lb 3.2 oz 187 lb 3.2 oz Patient Weight 09/03/22 03:59 Weight 187 lb 3.2 oz Intake & Output: Intake & Output 09/02/22 09/02/22 09/02/22 03:59 11:59 19:59 Intake Total 2200 1220 1017 Output Total 1250 500 400 Balance 950 720 617 Weight 187 lb 3.2 oz 187 lb 3.2 oz Intake: IV 2100 1100 817 Lactated Ringers 1,000 ml @ 200 2000 1000 717 mls/hr IV .Q5H [facility] Rx#: [id number] Oral 100 120 200 Output: Void Amount 1250 500 400 Other: Urine Appearance Clear Clear Urine Color Dark Yellow Yellow Urine Odor Normal General appearance: average body habitus, cooperative and mild distress Head Head exam: Present atraumatic and normal inspection Eye Eye exam: Present normal appearance Neck Neck exam: Present normal inspection Respiratory Respiratory exam: Absent accessory muscle use OBJ DATA Labs 09/02/22 05:17 09/02/22 05:17 Labs: Abnormal Lab Results 09/02/22 09/02/22 09/01/22 05:17 05:17 06:54 WBC 17.1 H 14.9 H Hct Neut % (Auto) 86.9 H 83.6 H Lymph % (Auto) 5.2 L 8.9 L Lymph # (Auto) 0.89 L 1.32 L [place] # (Auto) 1.06 H Immature Gran # 0.07 H 0.07 H Absolute Neutrophils 14.85 H 12.43 H BUN 5 L Creatinine 0.5 L Glucose Uric Acid 2.2 L Calcium 7.9 L Phosphorus 2.0 L Direct Bilirubin 0.5 H C-Reactive Protein Total Protein 5.8 L Lipase 09/01/22 08/31/22 08/31/22 05:08 16:52 05:25 WBC 15.5 H Hct 33.9 L Neut % (Auto) 85.9 H Lymph % (Auto) 5.8 L Lymph # (Auto) 0.90 L [place] # (Auto) 1.18 H Immature Gran # 0.08 H Absolute Neutrophils 13.26 H BUN Creatinine 0.5 L Glucose Uric Acid 1.8 L 2.0 L Calcium 8.2 L Phosphorus 2.2 L Direct Bilirubin C-Reactive Protein 1.80 H Total Protein Lipase 08/31/22 05:25 WBC Hct Neut % (Auto) Lymph % (Auto) Lymph # (Auto) [place] # (Auto) Immature Gran # Absolute Neutrophils BUN Creatinine 0.5 L Glucose 114 H Uric Acid Calcium Phosphorus Direct Bilirubin C-Reactive Protein Total Protein Lipase 459 H Meds: Medications Enoxaparin Sodium (Enoxaparin 40 Mg/0.4 Ml Syringe) 40 mg SQ DAILY [facility] Last Admin: 09/02/22 07:51 Dose: 40 mg Fentanyl (Fentanyl 100 Mcg/2 Ml Vial) 50 mcg IV Q30M PRN; Protocol PRN Reason: Per Pain Protocol Last Admin: 09/02/22 16:58 Dose: 50 mcg Acetaminophen (Ofirmev) 1,000 mg in 100 mls @ 200 mls/hr IV Q8 [facility]; Protocol Last Infusion: 09/02/22 13:45 Dose: Infused Lactated Ringer's (Lactated Ringers) 1,000 mls @ 150 mls/hr IV .Q6H40M [facility] Last Admin: 09/02/22 15:37 Dose: 150 mls/hr Ketorolac Tromethamine (Ketorolac 15 Mg/Ml Vial) 15 mg IV Q6HP PRN PRN Reason: moderate pain Last Admin: 09/02/22 11:17 Dose: 15 mg Naloxone HCl (Naloxone Hcl 0.4 Mg/Ml Vial) 0.4 mg IV Q10M PRN PRN Reason: Opiate Reversal Ondansetron HCl (Ondansetron 4 Mg/2 Ml Vial) 4 mg IV Q6HP PRN PRN Reason: Nausea And Vomiting Last Admin: 09/01/22 03:12 Dose: 4 mg Oxycodone HCl (Oxycodone Hcl 5 Mg Tablet) 5 mg PO Q4HP PRN; Protocol PRN Reason: Per Pain Protocol Last Admin: 09/02/22 15:05 Dose: 5 mg Promethazine HCl (Promethazine 25 Mg/Ml Vial) 12.5 mg IV Q4HP PRN PRN Reason: Nausea And Vomiting Last Admin: 09/02/22 11:17 Dose: 12.5 mg Senna (Sennosides 1 Tablet) 2 tab PO HS PRN PRN Reason: constipation Sodium Chloride (0.9 % Sodium Chloride 10 Ml Syringe) 10 ml IV Q8 [facility] Last Admin: 09/02/22 14:56 Dose: Not Given A/P Assessment and plan (1) Pancreatitis, acute: Status: Acute Plan Reviewed case with Dr. Pantoja. Will check a lipase tomorrow. Reviewed plan with patient and nurse. Would be candidate for discharge once lipase is trending down, she can take PO intake and pain controlled with PO opioids. Plan on biliary stent removal in 3 weeks. Time Spent With Patient Time: Total time spent is greater than 50% in coordination of care (as documented) at patient's floor/unit and/or counseling patient: Initial: Total time with patient: Less than 40 minutes Critical Care Time: No
[2022-09-03] MEDS: fentaNYL 100 MCG/2 ML VIAL IV PRN ×18 (00:24→23:40)
[2022-09-03] MEDS: ONDANSETRON 4 MG/2 ML VIAL IV PRN ×2 (01:27→22:09)
[2022-09-03] MEDS: oxyCODONE HCL 5 MG TABLET PO PRN ×7 (02:56→23:40)
[2022-09-03] MEDS: PROMETHAZINE 25 MG/ML VIAL IV PRN ×4 (02:56→17:05)
[2022-09-03] MEDS: LACTATED RINGERS 1,000 ML IV SCH ×4 (05:16→23:42)
[2022-09-03] MEDS: 0.9 % SODIUM CHLORIDE 10 ML SYRINGE IV SCH ×3 (05:21→22:00)
[2022-09-03] MEDS: ACETAMINOPHEN 1,000 MG/100 ML BAG IV SCH ×3 (05:36→21:28)
[2022-09-03 06:56] LABS: ALT/SGPT 20 U/L (<40); AST/SGOT 19 U/L (<32); Albumin 2.8 gm/dL (3.2-5.2); Albumin/Globulin Ratio 1.1 (1.0-2.3); Alkaline Phosphatase 62 U/L (39-117); Bilirubin,Direct 0.4 mg/dL (<0.3); Bilirubin,Total 0.7 mg/dL (0.1-1.0); Blood Urea Nitrogen 4 mg/dL (6-20); Calcium 7.7 mg/dL (8.6-10.4); Carbon Dioxide 21 mmol/L (22-30); Chloride 99 mmol/L (96-108); Globulin 2.5 gm/dL (2.2-3.7); Glomerular Filtration Rate 134; Glucose 68 mg/dL (70-105); Lactate Dehydrogenase 208 U/L (135-225); Triglycerides 65 mg/dL (<150); Uric Acid 3.3 mg/dL (2.5-8.0)
[2022-09-03] MEDS ORDERED: POTASSIUM CHLORIDE 40 MEQ in DEXTROSE 5% IN WATER 500 ML IV ONE (07:34)
[2022-09-03] MEDS: ENOXAPARIN 40 MG/0.4 ML SYRINGE SQ SCH (07:53)
[2022-09-03 08:09] LABS: Basophils # (Auto) 0.06 K/mcL (0.00-0.30); Basophils % (Auto) 0.4 % (0.0-2.0); Eosinophils % (Auto) 1.2 % (0.0-7.0); Hematocrit 31.2 % (34.1-44.9); Hemoglobin 10.4 g/dL (11.2-15.7); Lymphocytes # (Auto) 0.89 K/mcL (1.50-4.80); Lymphocytes % (Auto) 5.4 % (15.5-49.0); Mean Cell Volume 96.3 fL (80.0-100.0); Mean Corpuscular HGB Conc 33.3 g/dL (31.0-36.0); Mean Platelet Volume 11.9 fL (8.8-12.5); Monocytes # (Auto) 0.83 K/mcL (0.10-0.90); Neutrophils % (Auto) 87.5 % (38.0-78.0); Platelet Count 140 K/mcL (140-440); RBC 3.24 M/mcL (3.59-5.38); Red Cell Distribution Width 11.9 % (11.5-14.5); WBC 16.6 K/mcL (4.5-11.0)
--- NOTE | 2022-09-03 14:00 | Internal Med Progress Note ---
SUBJECTIVE Subjective Patient information: Note initiated : 09/03/22 at 1:58 pm Service Date, if different from initiated Date: [] Patient: Anyi Zhang a 37 y/o F admitted on 08/31/22 for ERCP w/ Scarlett. Chief Complaint: [] Principal diagnosis: Acute pancreatitis after bile leak Interval history: Ms. Zhang is a 37 year old Female with with a history of cholelithiasis who recently underwent a laparoscopic cholecystectomy. Early on the day of this admission, the patient developed severe abdominal pain for which she was seen at the [facility] emergency department. The patient was found to have a biliary leak, likely a complication from the recent cholecystectomy. An ERCP was attempted to stop the leak at that hospital however was not successful. The patient was transferred to [facility] at Dr. Pantoja's request to perform an ERCP and attempt to stop the biliary leak. Hospital medicine was later notified of this plan, I was reluctant to accept this patient given the failed ERCP at the [facility] however Dr. Pantoja felt the chances of complications were low and that he would be able to stop the biliary leak. The patient underwent repeat ERCP soon after arrival. Dr. Freeman feels that he was able to stop the leak with a stent placement. Following the ERCP, the patient will be admitted for observation following the procedure. 08/31 This morning the patient reported her abdominal pain had improved significantly. Lipase was modestly elevated however gastroenterology did not feel that was unexpected given the recent procedures. Gastroenterology felt the patient was ready to discharge and discharge orders were placed however the patient later developed epigastric abdominal pain similar to when she first presented to the emergency department. Discharge canceled. Abdominal 1 view x-ray ordered and did not show any acute changes. Lipase resulted significantly higher in the afternoon and a CT abdomen pelvis with IV contrast showed the pancreas to be somewhat edema at this, especially in the pancreatic head and pancreatic body. There was also intraperitoneal fluid in the pelvis and inflammatory changes and fluid within the gallbladder fossa, twan hepatis and peripancreatic spaces. Patient's abdominal pain is likely secondary to acute pancreatitis secondary to the recent ERCPs. IV fluids were increased,. Dilaudid IV as needed was increased however the patient felt that she had spasms secondary to Dilaudid therefore this was changed to fentanyl IV as needed. The patient was transferred to the PCU for close monitoring. 09/01 Vitals stable overnight, abdominal pain about the same as yesterday. Fentanyl working better for pain control and Dilaudid but wearing off quickly. Scheduled acetaminophen IV every 8 hours. Increase fentanyl frequency, fentanyl [employer] is not available per pharmacy. Continue IV fluid and close monitoring. 09/02 High-grade temperatures overnight, white blood cell count increased to 17.1, these changes are likely secondary to acute pancreatitis not infection. Patient's abdominal discomfort appears to have plateaued. Continue analgesics, IV fluids, clear liquid diet and advance as tolerated and supportive cares. 09/03 Temperature trend has improved overall, mild improvement in leukocytosis. Replaced potassium today. Modest improvement since yesterday overall. Advance to full liquid diet as tolerated. Continues on Ringer's lactate for IV fluid, analgesics. Physical exam Head: Atraumatic, normal inspection. Eyes: normal appearance, no scleral icterus. Neck: full ROM Respiratory: no respiratory distress. Cardiovascular: Regular heart rate GI/Abdominal: Tenderness present, mild rebound tenderness present. Extremities: full range of motion, nontender. Neurological: CN II-XII intact, intact motor, intact sensation. Psychiatric: normal mood. Skin: warm, normal color Constitutional Vitals: Vital Signs Temp Pulse Resp BP Pulse Ox O2 Del Method O2 Flow Rate 98.9 F 89 18 138/90 96 Room Air 1 09/03/22 12:10 09/03/22 12:10 09/03/22 06:02 09/03/22 12:10 09/03/22 12:10 09/03/22 12:10 09/03/22 09:31 Period Temp Pulse Resp BP Sys/Child Pulse Ox O2 Del Method O2 Flow Rate Last 24 Hr 98.1 F-100.2 F 72-112 8- 119-143/72-93 88-100 Nasal Cannula- Room Air 1-2 Intake and Output 09/03/22 09/03/22 09/03/22 03:59 11:59 19:59 Intake Total 1072 1578 Output Total 700 250 Balance 372 1328 Weight 87.09 kg Intake & Output: Intake & Output 09/03/22 09/03/22 09/03/22 03:59 11:59 19:59 Intake Total 1072 1578 Output Total 700 250 Balance 372 1328 Weight 87.09 kg Intake: IV 1072 1478 Lactated Ringers 1,000 ml @ 965 038 4652 mls/hr IV .Q6H40M [facility] Rx#: [id number] Oral 100 Output: Void Amount 700 250 Other: Urine Appearance Clear Cloudy Urine Color Dark Yellow Yellow Yellow # Voids 1 1 OBJ DATA Labs 09/03/22 05:13 09/03/22 05:13 Labs: Abnormal Lab Results 09/03/22 09/03/22 09/02/22 05:13 05:13 05:17 WBC 16.6 H RBC 3.24 L Hgb 10.4 L Hct 31.2 L Neut % (Auto) 87.5 H Lymph % (Auto) 5.4 L Lymph # (Auto) 0.89 L [place] # (Auto) Immature Gran # 0.08 H Absolute Neutrophils 14.56 H Potassium 3.2 L Carbon Dioxide 21 L BUN 4 L 5 L Creatinine 0.4 L 0.5 L Glucose 68 L Uric Acid 2.2 L Calcium 7.7 L 7.9 L Phosphorus 2.0 L 2.0 L Direct Bilirubin 0.4 H 0.5 H C-Reactive Protein Total Protein 5.3 L 5.8 L Albumin 2.8 L Lipase 151 H 09/02/22 09/01/22 09/01/22 05:17 06:54 05:08 WBC 17.1 H 14.9 H RBC Hgb Hct Neut % (Auto) 86.9 H 83.6 H Lymph % (Auto) 5.2 L 8.9 L Lymph # (Auto) 0.89 L 1.32 L [place] # (Auto) 1.06 H Immature Gran # 0.07 H 0.07 H Absolute Neutrophils 14.85 H 12.43 H Potassium Carbon Dioxide BUN Creatinine 0.5 L Glucose Uric Acid 1.8 L Calcium 8.2 L Phosphorus Direct Bilirubin C-Reactive Protein 1.80 H Total Protein Albumin Lipase 08/31/22 16:52 WBC RBC Hgb Hct Neut % (Auto) Lymph % (Auto) Lymph # (Auto) [place] # (Auto) Immature Gran # Absolute Neutrophils Potassium Carbon Dioxide BUN Creatinine Glucose Uric Acid 2.0 L Calcium Phosphorus 2.2 L Direct Bilirubin C-Reactive Protein Total Protein Albumin Lipase Meds: Medications Enoxaparin Sodium (Enoxaparin 40 Mg/0.4 Ml Syringe) 40 mg SQ DAILY [facility] Last Admin: 09/03/22 07:53 Dose: 40 mg Fentanyl (Fentanyl 100 Mcg/2 Ml Vial) 50 mcg IV Q30M PRN; Protocol PRN Reason: Per Pain Protocol Last Admin: 09/03/22 12:46 Dose: 50 mcg Acetaminophen (Ofirmev) 1,000 mg in 100 mls @ 200 mls/hr IV Q8 [facility]; Protocol Last Admin: 09/03/22 13:47 Dose: 200 mls/hr Lactated Ringer's (Lactated Ringers) 1,000 mls @ 150 mls/hr IV .Q6H40M [facility] Last Infusion: 09/03/22 11:57 Dose: 150 mls/hr Naloxone HCl (Naloxone Hcl 0.4 Mg/Ml Vial) 0.4 mg IV Q10M PRN PRN Reason: Opiate Reversal Ondansetron HCl (Ondansetron 4 Mg/2 Ml Vial) 4 mg IV Q6HP PRN PRN Reason: Nausea And Vomiting Last Admin: 09/03/22 01:27 Dose: 4 mg Oxycodone HCl (Oxycodone Hcl 5 Mg Tablet) 5 - 10 mg PO Q4HP PRN; Protocol PRN Reason: Per Pain Protocol Last Admin: 09/03/22 12:01 Dose: 10 mg Promethazine HCl (Promethazine 25 Mg/Ml Vial) 12.5 mg IV Q4HP PRN PRN Reason: Nausea And Vomiting Last Admin: 09/03/22 11:49 Dose: 12.5 mg Senna (Sennosides 1 Tablet) 2 tab PO HS PRN PRN Reason: constipation Sodium Chloride (0.9 % Sodium Chloride 10 Ml Syringe) 10 ml IV Q8 [facility] Last Admin: 09/03/22 05:21 Dose: Not Given A/P Narrative A/P Narrative: Assessment: 37-year-old female with a history of recent laparoscopic cholecystectomy complicated by bile duct leak who underwent ERCP and stent lori cement to fix the bile duct leak. #Acute post ERCP pancreatitis #Bile duct leak status status post ERCP 08/30/22 with biliary stent placement #History of cholelithiasis status post recent laparoscopic cholecystectomy likely complicated by surgical staple failure resulting in bile duct leak Plan -Scheduled Tylenol IV, Toradol IV as needed, oxycodone as needed, fentanyl IV as needed. -IV fluid. -Monitor electrolytes, replace as needed. -Monitor nutritional status. -Full liquid diet. -Continuous pulse oximetry while receiving high-dose opioids. -DVT prophylaxis: Lovenox -CODE STATUS: Full -Disposition: Inpatient PCU. Time Spent With Patient Time: Total time spent is greater than 50% in coordination of care (as documented) at patient's floor/unit and/or counseling patient:
[2022-09-03] MEDS: SENNOSIDES 1 TABLET PO PRN (17:05)
--- NOTE | 2022-09-03 17:06 | Internal Med Progress Note ---
SUBJECTIVE Subjective Patient information: Note initiated : 09/03/22 at 5:02 pm Service Date, if different from initiated Date: [] Patient: Anyi Zhang 37 y/o F admitted on 08/31/22 for ERCP w/ Scarlett. Chief Complaint: [] Principal diagnosis: Acute pancreatitis after bile leak Interval history: 37 year old female with acute post ERCP pancreatitis. Lipase down from 12,000 to 151. Mild improvement in leukocytosis. Still requiring IV fentanyl and PO oxycodone. No BM yet; reluctant to take Senna. Pain whenever she tries chicken broth. Constitutional Vitals: Vital Signs Temp Pulse Resp BP Pulse Ox O2 Del Method O2 Flow Rate 98.5 F 90 18 128/92 99 Nasal Cannula 1 09/03/22 16:17 09/03/22 16:17 09/03/22 06:02 09/03/22 16:17 09/03/22 16:17 09/03/22 16:17 09/03/22 16:17 Period Temp Pulse Resp BP Sys/Child Pulse Ox O2 Del Method O2 Flow Rate Last 24 Hr 98.2 F-100.2 F 72-111 8-21 119-143/72-93 88-100 Nasal Cannula- Room Air 1-2 Intake and Output 09/03/22 09/03/22 09/03/22 03:59 11:59 19:59 Intake Total 1072 2097 100 Output Total 700 250 Balance 372 1848 100 Weight 192 lb Intake & Output: Intake & Output 09/03/22 09/03/22 09/03/22 03:59 11:59 19:59 Intake Total 1072097 100 Output Total 700 250 Balance 372 1848 100 Weight 192 lb Intake: IV 1072 1998 100 Lactated Ringers 1,000 ml @ 248 899 7159 mls/hr IV .Q6H40M [facility] Rx#: [id number] Potassium Chloride 40 Meq In 520 Dextrose 5% in Water 500 ml @ 130 mls/hr IV ONCE ONE Rx#: [id number] Oral 100 Output: Void Amount 700 250 Other: Urine Appearance Clear Cloudy Urine Color Dark Yellow Yellow Yellow # Voids 1 1 General appearance: average body habitus, cooperative and moderate distress Head Head exam: Present atraumatic, normal inspection and normocephalic Eye Eye exam: Present normal appearance Respiratory Respiratory exam: Absent accessory muscle use OBJ DATA Labs 09/03/22 05:13 09/03/22 05:13 Labs: Abnormal Lab Results 09/03/22 09/03/22 09/02/22 05:13 05:13 05:17 WBC 16.6 H RBC 3.24 L Hgb 10.4 L Hct 31.2 L Neut % (Auto) 87.5 H Lymph % (Auto) 5.4 L Lymph # (Auto) 0.89 L [place] # (Auto) Immature Gran # 0.08 H Absolute Neutrophils 14.56 H Potassium 3.2 L Carbon Dioxide 21 L BUN 4 L 5 L Creatinine 0.4 L 0.5 L Glucose 68 L Uric Acid 2.2 L Calcium 7.7 L 7.9 L Phosphorus 2.0 L 2.0 L Direct Bilirubin 0.4 H 0.5 H C-Reactive Protein Total Protein 5.3 L 5.8 L Albumin 2.8 L Lipase 151 H 09/02/22 09/01/22 09/01/22 05:17 06:54 05:08 WBC 17.1 H 14.9 H RBC Hgb Hct Neut % (Auto) 86.9 H 83.6 H Lymph % (Auto) 5.2 L 8.9 L Lymph # (Auto) 0.89 L 1.32 L [place] # (Auto) 1.06 H Immature Gran # 0.07 H 0.07 H Absolute Neutrophils 14.85 H 12.43 H Potassium Carbon Dioxide BUN Creatinine 0.5 L Glucose Uric Acid 1.8 L Calcium 8.2 L Phosphorus Direct Bilirubin C-Reactive Protein 1.80 H Total Protein Albumin Lipase 08/31/22 16:52 WBC RBC Hgb Hct Neut % (Auto) Lymph % (Auto) Lymph # (Auto) [place] # (Auto) Immature Gran # Absolute Neutrophils Potassium Carbon Dioxide BUN Creatinine Glucose Uric Acid 2.0 L Calcium Phosphorus 2.2 L Direct Bilirubin C-Reactive Protein Total Protein Albumin Lipase Meds: Medications Enoxaparin Sodium (Enoxaparin 40 Mg/0.4 Ml Syringe) 40 mg SQ DAILY [facility] Last Admin: 09/03/22 07:53 Dose: 40 mg Fentanyl (Fentanyl 100 Mcg/2 Ml Vial) 50 mcg IV Q30M PRN; Protocol PRN Reason: Per Pain Protocol Last Admin: 09/03/22 16:59 Dose: 50 mcg Acetaminophen (Ofirmev) 1,000 mg in 100 mls @ 200 mls/hr IV Q8 [facility]; Protocol Last Infusion: 09/03/22 14:17 Dose: Infused Lactated Ringer's (Lactated Ringers) 1,000 mls @ 150 mls/hr IV .Q6H40M [facility] Last Infusion: 09/03/22 11:57 Dose: 150 mls/hr Naloxone HCl (Naloxone Hcl 0.4 Mg/Ml Vial) 0.4 mg IV Q10M PRN PRN Reason: Opiate Reversal Ondansetron HCl (Ondansetron 4 Mg/2 Ml Vial) 4 mg IV Q6HP PRN PRN Reason: Nausea And Vomiting Last Admin: 09/03/22 01:27 Dose: 4 mg Oxycodone HCl (Oxycodone Hcl 5 Mg Tablet) 5 - 10 mg PO Q4HP PRN; Protocol PRN Reason: Per Pain Protocol Last Admin: 09/03/22 16:07 Dose: 10 mg Promethazine HCl (Promethazine 25 Mg/Ml Vial) 12.5 mg IV Q4HP PRN PRN Reason: Nausea And Vomiting Last Admin: 09/03/22 11:49 Dose: 12.5 mg Senna (Sennosides 1 Tablet) 2 tab PO HS PRN PRN Reason: constipation Sodium Chloride (0.9 % Sodium Chloride 10 Ml Syringe) 10 ml IV Q8 [facility] Last Admin: 09/03/22 15:16 Dose: Not Given A/P Assessment and plan (1) Pancreatitis, acute: Assessment and plan: Improvement in lipase. Discussed some patients with pancreatic pain may require a neuromodulator such as a tricyclic or gabapentin. Encouraged her to try Senna for BM. Will continue to follow with hospitalist. Status: Acute Time Spent With Patient Time: Total time spent is greater than 50% in coordination of care (as documented) at patient's floor/unit and/or counseling patient:
[2022-09-04] MEDS: PROMETHAZINE 25 MG/ML VIAL IV PRN (03:31)
[2022-09-04] MEDS: oxyCODONE HCL 5 MG TABLET PO PRN ×5 (03:32→19:34)
[2022-09-04] MEDS: fentaNYL 100 MCG/2 ML VIAL IV PRN ×5 (03:32→20:40)
[2022-09-04] MEDS: ACETAMINOPHEN 1,000 MG/100 ML BAG IV SCH ×3 (05:22→20:56)
[2022-09-04] MEDS: LACTATED RINGERS 1,000 ML IV SCH (05:28)
[2022-09-04] MEDS: 0.9 % SODIUM CHLORIDE 10 ML SYRINGE IV SCH ×3 (05:29→20:48)
[2022-09-04 06:27] LABS: Basophils # (Auto) 0.03 K/mcL (0.00-0.30); Basophils % (Auto) 0.2 % (0.0-2.0); Eosinophils # (Auto) 0.25 K/mcL (0.00-0.70); Eosinophils % (Auto) 1.9 % (0.0-7.0); Hematocrit 28.4 % (34.1-44.9); Hemoglobin 9.4 g/dL (11.2-15.7); Lymphocytes # (Auto) 0.82 K/mcL (1.50-4.80); Lymphocytes % (Auto) 6.1 % (15.5-49.0); Mean Corpuscular HGB Conc 33.1 g/dL (31.0-36.0); Mean Platelet Volume 10.9 fL (8.8-12.5); Monocytes % (Auto) 5.9 % (1.0-12.0); Neutrophils % (Auto) 85.5 % (38.0-78.0); Platelet Count 182 K/mcL (140-440); RBC 2.99 M/mcL (3.59-5.38); Red Cell Distribution Width 11.9 % (11.5-14.5); WBC 13.5 K/mcL (4.5-11.0)
[2022-09-04 06:56] LABS: ALT/SGPT 16 U/L (<40); AST/SGOT 15 U/L (<32); Albumin 2.9 gm/dL (3.2-5.2); Albumin/Globulin Ratio 1.1 (1.0-2.3); Alkaline Phosphatase 80 U/L (39-117); Bilirubin,Direct 0.2 mg/dL (<0.3); Bilirubin,Total 0.5 mg/dL (0.1-1.0); Blood Urea Nitrogen 2 mg/dL (6-20); Calcium 7.7 mg/dL (8.6-10.4); Carbon Dioxide 25 mmol/L (22-30); Chloride 100 mmol/L (96-108); Globulin 2.6 gm/dL (2.2-3.7); Glomerular Filtration Rate 134; Glucose 80 mg/dL (70-105); Lactate Dehydrogenase 213 U/L (135-225); Phosphorous 2.3 mg/dL (2.5-4.5); Triglycerides 81 mg/dL (<150); Uric Acid 4.4 mg/dL (2.5-8.0)
[2022-09-04] MEDS ORDERED: DEXTROSE 5%-NS W/20MEQ KCL 1,000 ML IV SCH (07:30)
[2022-09-04] MEDS: ENOXAPARIN 40 MG/0.4 ML SYRINGE SQ SCH (08:03)
[2022-09-04] MEDS: SENNOSIDES 1 TABLET PO PRN ×2 (09:13→20:57)
--- NOTE | 2022-09-04 10:18 | Internal Med Progress Note ---
SUBJECTIVE Subjective Patient information: Note initiated : 09/04/22 at 10:17 am Service Date, if different from initiated Date: [] Patient: Anyi Zhang a 37 y/o F admitted on 08/31/22 for ERCP w/ Scarlett. Chief Complaint: [] Principal diagnosis: Acute pancreatitis after bile leak Interval history: Ms. Zhang is a 37 year old Female with with a history of cholelithiasis who recently underwent a laparoscopic cholecystectomy. Early on the day of this admission, the patient developed severe abdominal pain for which she was seen at the [facility] emergency department. The patient was found to have a biliary leak, likely a complication from the recent cholecystectomy. An ERCP was attempted to stop the leak at that hospital however was not successful. The patient was transferred to [facility] at Dr. Pantoja's request to perform an ERCP and attempt to stop the biliary leak. Hospital medicine was later notified of this plan, I was reluctant to accept this patient given the failed ERCP at the [facility] however Dr. Pantoja felt the chances of complications were low and that he would be able to stop the biliary leak. The patient underwent repeat ERCP soon after arrival. Dr. Freeman feels that he was able to stop the leak with a stent placement. Following the ERCP, the patient will be admitted for observation following the procedure. 08/31 This morning the patient reported her abdominal pain had improved significantly. Lipase was modestly elevated however gastroenterology did not feel that was unexpected given the recent procedures. Gastroenterology felt the patient was ready to discharge and discharge orders were placed however the patient later developed epigastric abdominal pain similar to when she first presented to the emergency department. Discharge canceled. Abdominal 1 view x-ray ordered and did not show any acute changes. Lipase resulted significantly higher in the afternoon and a CT abdomen pelvis with IV contrast showed the pancreas to be somewhat edema at this, especially in the pancreatic head and pancreatic body. There was also intraperitoneal fluid in the pelvis and inflammatory changes and fluid within the gallbladder fossa, twan hepatis and peripancreatic spaces. Patient's abdominal pain is likely secondary to acute pancreatitis secondary to the recent ERCPs. IV fluids were increased,. Dilaudid IV as needed was increased however the patient felt that she had spasms secondary to Dilaudid therefore this was changed to fentanyl IV as needed. The patient was transferred to the PCU for close monitoring. 09/01 Vitals stable overnight, abdominal pain about the same as yesterday. Fentanyl working better for pain control and Dilaudid but wearing off quickly. Scheduled acetaminophen IV every 8 hours. Increase fentanyl frequency, fentanyl [employer] is not available per pharmacy. Continue IV fluid and close monitoring. 09/02 High-grade temperatures overnight, white blood cell count increased to 17.1, these changes are likely secondary to acute pancreatitis not infection. Patient's abdominal discomfort appears to have plateaued. Continue analgesics, IV fluids, clear liquid diet and advance as tolerated and supportive cares. 09/03 Temperature trend has improved overall, mild improvement in leukocytosis. Replaced potassium today. Modest improvement since yesterday overall. Advance to full liquid diet as tolerated. Continues on Ringer's lactate for IV fluid, analgesics. 09/04 Afebrile overnight, stable vitals, leukocytosis improving. Potassium low normal today, will supplement. Hemoglobin downtrending, likely dilutional anemia. Abdominal pain has improved overall. Will advance to GI soft transitional diet today. Required oxygen supplementation overnight but on room air this morning. Chest x-ray showing bilateral pleural effusions, discontinued IV fluids. Physical exam Head: Atraumatic, normal inspection. Eyes: normal appearance, no scleral icterus. Neck: full ROM Respiratory: no respiratory distress. Cardiovascular: Regular heart rate GI/Abdominal: Tenderness present, mild rebound tenderness present. Extremities: full range of motion, nontender. Neurological: CN II-XII intact, intact motor, intact sensation. Psychiatric: normal mood. Skin: warm, normal color Constitutional Vitals: Vital Signs Temp Pulse Resp BP Pulse Ox O2 Del Method O2 Flow Rate 97.5 F 78 16 135/93 96 Room Air 2 09/04/22 08:05 09/04/22 08:05 09/04/22 04:00 09/04/22 08:05 09/04/22 08:05 09/04/22 08:05 09/04/22 06:00 Period Temp Pulse Resp BP Sys/Child Pulse Ox O2 Del Method O2 Flow Rate Last 24 Hr 97.5 F-98.9 F 78-105 16-20 122-154/81-99 93-99 Nasal Cannula- Room Air 1-2 Intake and Output 09/03/22 09/04/22 09/04/22 19:59 03:59 11:59 Intake Total 722 1433 1305 Balance 722 1433 1305 Weight 88.995 kg Intake & Output: Intake & Output 09/03/22 09/04/22 09/04/22 19:59 03:59 11:59 Intake Total 722 1433 1305 Balance 722 1433 1305 Weight 88.995 kg Intake: IV 722 1093 1305 Lactated Ringers 1,000 ml @ 150 696 459 3592 mls/hr IV .Q6H40M [facility] Rx#: [id number] Oral 340 Other: Urine Appearance Clear Urine Color Yellow # Voids 2 1 OBJ DATA Labs 09/04/22 05:32 09/04/22 05:31 Labs: Abnormal Lab Results 09/04/22 09/04/22 09/03/22 05:32 05:31 05:13 WBC 13.5 H RBC 2.99 L Hgb 9.4 L Hct 28.4 L Neut % (Auto) 85.5 H Lymph % (Auto) 6.1 L Lymph # (Auto) 0.82 L [place] # (Auto) Immature Gran # 0.06 H Absolute Neutrophils 11.55 H Potassium 3.2 L Carbon Dioxide 21 L BUN 2 L 4 L Creatinine 0.4 L 0.4 L Glucose 68 L Uric Acid Calcium 7.7 L 7.7 L Phosphorus 2.3 L 2.0 L Direct Bilirubin 0.4 H Total Protein 5.5 L 5.3 L Albumin 2.9 L 2.8 L Lipase 151 H 09/03/22 09/02/22 09/02/22 05:13 05:17 05:17 WBC 16.6 H 17.1 H RBC 3.24 L Hgb 10.4 L Hct 31.2 L Neut % (Auto) 87.5 H 86.9 H Lymph % (Auto) 5.4 L 5.2 L Lymph # (Auto) 0.89 L 0.89 L [place] # (Auto) 1.06 H Immature Gran # 0.08 H 0.07 H Absolute Neutrophils 14.56 H 14.85 H Potassium Carbon Dioxide BUN 5 L Creatinine 0.5 L Glucose Uric Acid 2.2 L Calcium 7.9 L Phosphorus 2.0 L Direct Bilirubin 0.5 H Total Protein 5.8 L Albumin Lipase Meds: Medications Enoxaparin Sodium (Enoxaparin 40 Mg/0.4 Ml Syringe) 40 mg SQ DAILY [facility] Last Admin: 09/04/22 08:03 Dose: Not Given Fentanyl (Fentanyl 100 Mcg/2 Ml Vial) 50 mcg IV Q30M PRN; Protocol PRN Reason: Per Pain Protocol Last Admin: 09/04/22 03:32 Dose: 50 mcg Acetaminophen (Ofirmev) 1,000 mg in 100 mls @ 200 mls/hr IV Q8 [facility]; Protocol Last Infusion: 09/04/22 06:40 Dose: Infused Naloxone HCl (Naloxone Hcl 0.4 Mg/Ml Vial) 0.4 mg IV Q10M PRN PRN Reason: Opiate Reversal Ondansetron HCl (Ondansetron 4 Mg/2 Ml Vial) 4 mg IV Q6HP PRN PRN Reason: Nausea And Vomiting Last Admin: 09/03/22 22:09 Dose: 4 mg Oxycodone HCl (Oxycodone Hcl 5 Mg Tablet) 5 - 10 mg PO Q4HP PRN; Protocol PRN Reason: Per Pain Protocol Last Admin: 09/04/22 09:14 Dose: 5 mg Promethazine HCl (Promethazine 25 Mg/Ml Vial) 12.5 mg IV Q4HP PRN PRN Reason: Nausea And Vomiting Last Admin: 09/04/22 03:31 Dose: 12.5 mg Senna (Sennosides 1 Tablet) 2 tab PO HS PRN PRN Reason: constipation Last Admin: 09/04/22 09:13 Dose: 2 tab Sodium Chloride (0.9 % Sodium Chloride 10 Ml Syringe) 10 ml IV Q8 [facility] Last Admin: 09/04/22 05:29 Dose: Not Given A/P Narrative A/P Narrative: Assessment: 37-year-old female with a history of recent laparoscopic cholecystectomy complicated by bile duct leak who underwent ERCP and stent placement to fix the bile duct leak. Unfortunately, the patient developed post ERCP acute pancreatitis. #Post ERCP acute pancreatitis, nonsevere #Bile duct leak status status post ERCP 08/30/22 with biliary stent placement #History of cholelithiasis status post recent laparoscopic cholecystectomy likely complicated by surgical staple failure resulting in bile duct leak Plan -Scheduled Tylenol IV, Toradol IV as needed, oxycodone as needed, fentanyl IV as needed. -Discontinue IV fluid. -Monitor electrolytes, replace as needed. -Monitor nutritional status. -Advance to GI soft/transitional diet. -Continuous pulse oximetry while receiving high-dose opioids. -DVT prophylaxis: Lovenox -CODE STATUS: Full -Disposition: Transfer from PCU to [facility]. Time Spent With Patient Time: Total time spent is greater than 50% in coordination of care (as documented) at patient's floor/unit and/or counseling patient:
[2022-09-04] MEDS ORDERED: POTASSIUM CHLORIDE 20 MEQ PACKET PO ONE (10:25)
[2022-09-04] MEDS: ONDANSETRON 4 MG/2 ML VIAL IV PRN (11:33)
--- NOTE | 2022-09-04 14:02 | XRay Report ---
CLINICAL INFORMATION: Hypoxia COMPARISON: None. TECHNIQUE: Portable FINDINGS: The heart size, mediastinum and pulmonary vessels are unremarkable. Small bilateral pleural effusions noted with minor subsegmental atelectasis both lung bases.. The bones and soft tissues are within normal limits. IMPRESSION: Small bilateral pleural effusions and minor bibasilar atelectasis. Interpreted and Authenticated by: Sajan Morton 09/04/22
[2022-09-04] MEDS ORDERED: IOPAMIDOL 100 ML BOTTLE IV ONE (15:29)
--- NOTE | 2022-09-04 15:53 | Cat Scan Report ---
CLINICAL INFORMATION: Pancreatitis COMPARISON: Abdomen and pelvic CT 10/12/2020 and 08/31/2022 TECHNIQUE: Following enteric contrast, 80 cc of Isovue-370 were injected intravenously, and 60 seconds later, 0.625 mm helical slices were obtained from the mid heart through the subtrochanteric regions. Following reconstruction, 2.5 mm sagittal, coronal and axial reformatted images were processed and reviewed at bone, lung and soft tissue windows. Five minutes later, 0.625 mm helical slices were obtained from the mid heart through the kidneys and viewed at soft tissue windows.The exam was performed using radiation dose optimization techniques including, but not limited to, automated exposure control, adjustment of the mA and/or kV according to patient size and use of iterative reconstruction technique. FINDINGS: Small bilateral pleural effusions and subsegmental atelectasis in the posterior dependent lower lobes have developed since the CT four days prior. Visualized heart is normal. Abdominal images show cholecystectomy changes. There is minimal periportal edema in the liver. No focal hepatic lesion. The biliary stent remains stable position with the proximal end in the common hepatic duct and the distal in the descending duodenum. Intrahepatic common hepatic and common bile ducts remain normal in caliber-CBD is 5 mm.. Acute interstitial pancreatitis has progressed. The gland shows slight increase in size and inhomogeneity attenuation with moderate increase in peripancreatic fluid since the comparison CT four days ago. There is now more fluid in the twan hepatis and also descending along the posterior mesentery and paracolic gutters. Moderate ascites in the deep true pelvis as increased. No evidence of necrosis or other pancreatitis complication however. A 16 mm cyst in the anterior spleen is been stable since 10/12/2020. Both adrenal glands, kidneys, and aorta are normal in size configuration and attenuation without focal lesion. There is no free air or adenopathy. Pelvic images show uterus and both ovaries are unremarkable. The urinary bladder is normal. The stomach, small large bowel are grossly normal. Bone windows show no osseous abnormality. IMPRESSION: 1. Moderate acute interstitial pancreatitis worsening considerably since comparison exam four days prior. There is increasing fluid in the fat planes, twan hepatis and descending in the posterior mesenteric cavity with moderate ascites increasing the deep true pelvis. There is no necrosis or other complication. 2. Small bilateral pleural effusions and subsegmental atelectasis both lower lobes-new. 3. 16 mm cyst anterior spleen stable since 2020 Interpreted and Authenticated by: Sajan Morton 09/04/22
[2022-09-05] MEDS: oxyCODONE HCL 5 MG TABLET PO PRN ×5 (00:26→20:01)
[2022-09-05] MEDS: PROMETHAZINE 25 MG/ML VIAL IV PRN ×2 (01:05→21:52)
[2022-09-05] MEDS: ACETAMINOPHEN 1,000 MG/100 ML BAG IV SCH ×3 (05:09→21:41)
[2022-09-05] MEDS: 0.9 % SODIUM CHLORIDE 10 ML SYRINGE IV SCH ×5 (05:10→21:42)
[2022-09-05 06:33] LABS: Basophils # (Auto) 0.04 K/mcL (0.00-0.30); Basophils % (Auto) 0.4 % (0.0-2.0); Eosinophils # (Auto) 0.24 K/mcL (0.00-0.70); Eosinophils % (Auto) 2.3 % (0.0-7.0); Hematocrit 29.6 % (34.1-44.9); Hemoglobin 9.9 g/dL (11.2-15.7); Lymphocytes # (Auto) 0.93 K/mcL (1.50-4.80); Lymphocytes % (Auto) 8.7 % (15.5-49.0); Mean Cell Volume 94.9 fL (80.0-100.0); Mean Corpuscular HGB Conc 33.4 g/dL (31.0-36.0); Mean Platelet Volume 10.7 fL (8.8-12.5); Monocytes # (Auto) 0.74 K/mcL (0.10-0.90); Monocytes % (Auto) 6.9 % (1.0-12.0); Neutrophils % (Auto) 81.2 % (38.0-78.0); Platelet Count 221 K/mcL (140-440); RBC 3.12 M/mcL (3.59-5.38); Red Cell Distribution Width 11.9 % (11.5-14.5); WBC 10.7 K/mcL (4.5-11.0)
[2022-09-05 06:43] LABS: ALT/SGPT 16 U/L (<40); AST/SGOT 16 U/L (<32); Albumin 3.1 gm/dL (3.2-5.2); Albumin/Globulin Ratio 1.1 (1.0-2.3); Alkaline Phosphatase 83 U/L (39-117); Bilirubin,Direct 0.2 mg/dL (<0.3); Bilirubin,Total 0.4 mg/dL (0.1-1.0); Blood Urea Nitrogen 3 mg/dL (6-20); Carbon Dioxide 21 mmol/L (22-30); Chloride 100 mmol/L (96-108); Globulin 2.7 gm/dL (2.2-3.7); Glomerular Filtration Rate 134; Glucose 70 mg/dL (70-105); Lactate Dehydrogenase 222 U/L (135-225); Phosphorous 2.6 mg/dL (2.5-4.5); Triglycerides 92 mg/dL (<150); Uric Acid 5.9 mg/dL (2.5-8.0)
[2022-09-05] MEDS ORDERED: 0.9 % SODIUM CHLORIDE 10 ML SYRINGE IV PRN (08:55)
--- NOTE | 2022-09-05 08:57 | Internal Med Progress Note ---
SUBJECTIVE Subjective Patient information: Note initiated : 09/05/22 at 8:56 am Service Date, if different from initiated Date: [] Patient: Anyi Zhang a 37 y/o F admitted on 08/31/22 for ERCP w/ Scarlett. Chief Complaint: [] Principal diagnosis: Acute pancreatitis after bile leak Interval history: Ms. Zhang is a 37 year old Female with with a history of cholelithiasis who recently underwent a laparoscopic cholecystectomy. Early on the day of this admission, the patient developed severe abdominal pain for which she was seen at the [facility] emergency department. The patient was found to have a biliary leak, likely a complication from the recent cholecystectomy. An ERCP was attempted to stop the leak at that hospital however was not successful. The patient was transferred to [facility] at Dr. Pantoja's request to perform an ERCP and attempt to stop the biliary leak. Hospital medicine was later notified of this plan, I was reluctant to accept this patient given the failed ERCP at the [facility] however Dr. Pantoja felt the chances of complications were low and that he would be able to stop the biliary leak. The patient underwent repeat ERCP soon after arrival. Dr. Freeman feels that he was able to stop the leak with a stent placement. Following the ERCP, the patient will be admitted for observation following the procedure. 08/31 This morning the patient reported her abdominal pain had improved significantly. Lipase was modestly elevated however gastroenterology did not feel that was unexpected given the recent procedures. Gastroenterology felt the patient was ready to discharge and discharge orders were placed however the patient later developed epigastric abdominal pain similar to when she first presented to the emergency department. Discharge canceled. Abdominal 1 view x-ray ordered and did not show any acute changes. Lipase resulted significantly higher in the afternoon and a CT abdomen pelvis with IV contrast showed the pancreas to be somewhat edema at this, especially in the pancreatic head and pancreatic body. There was also intraperitoneal fluid in the pelvis and inflammatory changes and fluid within the gallbladder fossa, twan hepatis and peripancreatic spaces. Patient's abdominal pain is likely secondary to acute pancreatitis secondary to the recent ERCPs. IV fluids were increased,. Dilaudid IV as needed was increased however the patient felt that she had spasms secondary to Dilaudid therefore this was changed to fentanyl IV as needed. The patient was transferred to the PCU for close monitoring. 09/01 Vitals stable overnight, abdominal pain about the same as yesterday. Fentanyl working better for pain control and Dilaudid but wearing off quickly. Scheduled acetaminophen IV every 8 hours. Increase fentanyl frequency, fentanyl SUGAR CANE GROWER is not available per pharmacy. Continue IV fluid and close monitoring. 09/02 High-grade temperatures overnight, white blood cell count increased to 17.1, these changes are likely secondary to acute pancreatitis not infection. Patient's abdominal discomfort appears to have plateaued. Continue analgesics, IV fluids, clear liquid diet and advance as tolerated and supportive cares. 09/03 Temperature trend has improved overall, mild improvement in leukocytosis. Replaced potassium today. Modest improvement since yesterday overall. Advance to full liquid diet as tolerated. Continues on Ringer's lactate for IV fluid, analgesics. 09/04 Afebrile overnight, stable vitals, leukocytosis improving. Potassium low normal today, will supplement. Hemoglobin downtrending, likely dilutional anemia. Abdominal pain has improved overall. Will advance to GI soft transitional diet today. Required oxygen supplementation overnight but on room air this morning. Chest x-ray showing bilateral pleural effusions, discontinued IV fluids. 09/05: The patient continues to complain of severe abdominal pain. She is unable to tolerate p.o. intake. CT scan appears much worse. Contacted GI. Constitutional Vitals: Vital Signs Temp Pulse Resp BP Pulse Ox O2 Del Method O2 Flow Rate 97.7 F 92 H 12 143/87 95 Room Air 95 09/05/22 08:00 09/05/22 08:00 09/05/22 08:00 09/05/22 08:00 09/05/22 08:00 09/05/22 08:00 09/04/22 20:00 Period Temp Pulse Resp BP Sys/Child Pulse Ox O2 Del Method O2 Flow Rate Last 24 Hr 97.7 F-98.8 F 79-104 12-16 122-149/77-95 91-99 Room Air-Room Air 95 Intake and Output 09/04/22 09/05/22 09/05/22 19:59 03:59 11:59 Intake Total 400 650 100 Output Total 250 Balance 150 650 100 Weight 87.997 kg Intake & Output: Intake & Output 09/04/22 09/05/22 09/05/22 19:59 03:59 11:59 Intake Total 400 650 100 Output Total 250 Balance 150 650 100 Weight 87.997 kg Intake: IV 100 100 100 Oral 300 550 Output: Void Amount 250 Other: Urine Appearance Clear Urine Color Yellow # Voids 1 1 Head Head exam: Present atraumatic and normal inspection Eye Eye exam: Present normal appearance ENT ENT exam: Present mucous membranes moist, normal exam and normal external ear exam Neck Neck exam: Present normal inspection Respiratory Respiratory exam: Present normal respiratory exam Cardiovascular Cardiovascular exam: Present normal rate and rhythm GI/Abdominal GI/Abdominal exam: Present normal bowel sounds, soft and tenderness; Absent guarding or rigid Back Exam Back exam: Present normal inspection Neurological Exam Neurological exam: Present alert and oriented X3 Skin Skin exam: Present intact and warm OBJ DATA Labs 09/05/22 05:19 09/05/22 05:18 Labs: Abnormal Lab Results 09/05/22 09/05/22 09/04/22 05:19 05:18 05:32 WBC 13.5 H RBC 3.12 L 2.99 L Hgb 9.9 L 9.4 L Hct 29.6 L 28.4 L Neut % (Auto) 81.2 H 85.5 H Lymph % (Auto) 8.7 L 6.1 L Lymph # (Auto) 0.93 L 0.82 L Immature Gran # 0.06 H Absolute Neutrophils 8.66 H 11.55 H Potassium Carbon Dioxide 21 L BUN 3 L Creatinine 0.4 L Glucose Calcium 8.0 L Phosphorus Direct Bilirubin GGT 37 H Total Protein 5.8 L Albumin 3.1 L Lipase 09/04/22 09/03/22 09/03/22 05:31 05:13 05:13 WBC 16.6 H RBC 3.24 L Hgb 10.4 L Hct 31.2 L Neut % (Auto) 87.5 H Lymph % (Auto) 5.4 L Lymph # (Auto) 0.89 L Immature Gran # 0.08 H Absolute Neutrophils 14.56 H Potassium 3.2 L Carbon Dioxide 21 L BUN 2 L 4 L Creatinine 0.4 L 0.4 L Glucose 68 L Calcium 7.7 L 7.7 L Phosphorus 2.3 L 2.0 L Direct Bilirubin 0.4 H GGT Total Protein 5.5 L 5.3 L Albumin 2.9 L 2.8 L Lipase 151 H Meds: Medications Enoxaparin Sodium (Enoxaparin 40 Mg/0.4 Ml Syringe) 40 mg SQ DAILY TIFFANIE Last Admin: 09/04/22 08:03 Dose: Not Given Fentanyl (Fentanyl 100 Mcg/2 Ml Vial) 50 mcg IV Q30M PRN; Protocol PRN Reason: Per Pain Protocol Last Admin: 09/04/22 20:40 Dose: 50 mcg Heparin Sodium (Porcine) (Heparin Flush 10 Units/Ml 5 Ml Syringe) 2 ml IV Q12 TIFFANIE Acetaminophen (Ofirmev) 1,000 mg in 100 mls @ 200 mls/hr IV Q8 TIFFANIE; Protocol Last Infusion: 09/05/22 05:39 Dose: Infused Naloxone HCl (Naloxone Hcl 0.4 Mg/Ml Vial) 0.4 mg IV Q10M PRN PRN Reason: Opiate Reversal Ondansetron HCl (Ondansetron 4 Mg/2 Ml Vial) 4 mg IV Q6HP PRN PRN Reason: Nausea And Vomiting Last Admin: 09/04/22 11:33 Dose: 4 mg Oxycodone HCl (Oxycodone Hcl 5 Mg Tablet) 5 - 10 mg PO Q4HP PRN; Protocol PRN Reason: Per Pain Protocol Last Admin: 09/05/22 03:57 Dose: 10 mg Promethazine HCl (Promethazine 25 Mg/Ml Vial) 12.5 mg IV Q4HP PRN PRN Reason: Nausea And Vomiting Last Admin: 09/05/22 01:05 Dose: 12.5 mg Senna (Sennosides 1 Tablet) 2 tab PO HS PRN PRN Reason: constipation Last Admin: 09/04/22 20:57 Dose: 2 tab Sodium Chloride (0.9 % Sodium Chloride 10 Ml Syringe) 10 ml IV Q8 TIFFANIE Last Admin: 09/05/22 05:10 Dose: 10 ml Sodium Chloride (0.9 % Sodium Chloride 10 Ml Syringe) 10 ml IV Q12 TIFFANIE Sodium Chloride (0.9 % Sodium Chloride 10 Ml Syringe) 10 ml IV UD PRN PRN Reason: FLUSH A/P Narrative A/P Narrative: Assessment: 37-year-old female with a history of recent laparoscopic cholecystectomy complicated by bile duct leak who underwent ERCP and stent placement to fix the bile duct leak. Unfortunately, the patient developed post ERCP acute pancreatitis. #Post ERCP acute pancreatitis, nonsevere #Bile duct leak status status post ERCP 08/30/22 with biliary stent placement #History of cholelithiasis status post recent laparoscopic cholecystectomy likely complicated by surgical staple failure resulting in bile duct leak Plan The patient's CT scan obtained 09/04 reveals considerable worsening with increase edema and swelling. I have contacted GI and I am awaiting their recommendations. We will continue to keep the patient n.p.o., continue IV analgesics, and will start TPN via PICC line. Time Spent With Patient Time: Total time spent is greater than 50% in coordination of care (as documented) at patient's floor/unit and/or counseling patient: Subsequent: Total time with patient: 35 - 49 minutes
[2022-09-05] MEDS: ENOXAPARIN 40 MG/0.4 ML SYRINGE SQ SCH (08:59)
[2022-09-05] MEDS: LACTATED RINGERS 1,000 ML IV SCH ×2 (09:05→22:12)
[2022-09-05 10:34] LABS: Prealbumin 7.4 mg/dL (20.0-40.0)
[2022-09-05 10:45] LABS: ALT/SGPT 18 U/L (<40); AST/SGOT 21 U/L (<32); Albumin 3.2 gm/dL (3.2-5.2); Albumin/Globulin Ratio 1.1 (1.0-2.3); Alkaline Phosphatase 72 U/L (39-117); Bilirubin,Direct 0.2 mg/dL (<0.3); Bilirubin,Total 0.5 mg/dL (0.1-1.0); Blood Urea Nitrogen 3 mg/dL (6-20); Calcium 7.8 mg/dL (8.6-10.4); Carbon Dioxide 21 mmol/L (22-30); Chloride 101 mmol/L (96-108); Globulin 2.8 gm/dL (2.2-3.7); Glomerular Filtration Rate 134; Glucose 65 mg/dL (70-105); Lactate Dehydrogenase 202 U/L (135-225); Phosphorous 2.6 mg/dL (2.5-4.5); Triglycerides 104 mg/dL (<150)
[2022-09-05] MEDS: fentaNYL 100 MCG/2 ML VIAL IV PRN ×2 (11:38→13:45)
--- NOTE | 2022-09-05 17:35 | Internal Med Progress Note ---
SUBJECTIVE Subjective Patient information: Note initiated : 09/05/22 at 5:29 pm Service Date, if different from initiated Date: [] Patient: Anyi Zhang a 37 y/o F admitted on 08/31/22 for ERCP w/ Scarlett. Chief Complaint: [] Principal diagnosis: Acute pancreatitis after bile leak Interval history: 37 year old white female with post ERCP pancreatitis following biliary stenting for bile leak after lap cholecystectomy. She was unable to advance diet yesterday so CT was undertaken which showed mild to moderate worsening of her pancreatitis. She declined NJ or NG feeding and hospitalist made efforts toward TPN but there is no PICC nurse available currently. Therefore, decision was made to transfer her. She is awaiting bed placement at [facility] in [place], [place]. Overall, her IV opioid needs have reduced dramatically in the last 4 days but she continues to require IV fentanyl 1-2 times a shift and oxycodone with IV acetaminophen around every 4 hours. She has not had a bowel movement. Sister and young daughter Carlota at bedside. Constitutional Vitals: Vital Signs Temp Pulse Resp BP Pulse Ox O2 Del Method O2 Flow Rate 99.4 F H 103 H 14 147/92 100 Room Air 95 09/05/22 12:00 09/05/22 12:00 09/05/22 12:00 09/05/22 12:00 09/05/22 12:00 09/05/22 12:00 09/04/22 20:00 Period Temp Pulse Resp BP Sys/Child Pulse Ox O2 Del Method O2 Flow Rate Last 24 Hr 97.7 F-99.4 F 79-103 12-14 122-147/77-92 91-100 Room Air-Room Air 95 Intake and Output 09/05/22 09/05/22 09/05/22 03:59 11:59 19:59 Intake Total 650 100 Balance 650 100 Weight 194 lb 194 lb Patient Weight 09/06/22 03:59 Weight 194 lb Intake & Output: Intake & Output 09/05/22 09/05/22 09/05/22 03:59 11:59 19:59 Intake Total 650 100 Balance 650 100 Weight 194 lb 194 lb Intake: IV 100 100 Oral 550 Other: # Voids 1 General appearance: average body habitus, cooperative and no acute distress Head Head exam: Present atraumatic, normal inspection and normocephalic Eye Eye exam: Present normal appearance Neck Neck exam: Present normal inspection Skin Skin exam: Present normal color; Absent diaphoretic OBJ DATA Labs 09/05/22 05:19 09/05/22 09:27 Labs: Abnormal Lab Results 09/05/22 09/05/22 09/05/22 09:27 05:19 05:18 WBC RBC 3.12 L Hgb 9.9 L Hct 29.6 L Neut % (Auto) 81.2 H Lymph % (Auto) 8.7 L Lymph # (Auto) 0.93 L Immature Gran # Absolute Neutrophils 8.66 H Potassium 3.2 L Carbon Dioxide 21 L 21 L BUN 3 L 3 L Creatinine 0.4 L 0.4 L Glucose 65 L Calcium 7.8 L 8.0 L Phosphorus Direct Bilirubin GGT 37 H Total Protein 5.8 L Albumin 3.1 L Prealbumin 7.4 L Lipase 09/04/22 09/04/22 09/03/22 05:32 05:31 05:13 WBC 13.5 H RBC 2.99 L Hgb 9.4 L Hct 28.4 L Neut % (Auto) 85.5 H Lymph % (Auto) 6.1 L Lymph # (Auto) 0.82 L Immature Gran # 0.06 H Absolute Neutrophils 11.55 H Potassium 3.2 L Carbon Dioxide 21 L BUN 2 L 4 L Creatinine 0.4 L 0.4 L Glucose 68 L Calcium 7.7 L 7.7 L Phosphorus 2.3 L 2.0 L Direct Bilirubin 0.4 H GGT Total Protein 5.5 L 5.3 L Albumin 2.9 L 2.8 L Prealbumin Lipase 151 H 09/03/22 05:13 WBC 16.6 H RBC 3.24 L Hgb 10.4 L Hct 31.2 L Neut % (Auto) 87.5 H Lymph % (Auto) 5.4 L Lymph # (Auto) 0.89 L Immature Gran # 0.08 H Absolute Neutrophils 14.56 H Potassium Carbon Dioxide BUN Creatinine Glucose Calcium Phosphorus Direct Bilirubin GGT Total Protein Albumin Prealbumin Lipase Meds: Medications Enoxaparin Sodium (Enoxaparin 40 Mg/0.4 Ml Syringe) 40 mg SQ DAILY [facility] Last Admin: 09/05/22 08:59 Dose: 40 mg Fentanyl (Fentanyl 100 Mcg/2 Ml Vial) 50 mcg IV Q30M PRN; Protocol PRN Reason: Per Pain Protocol Last Admin: 09/05/22 13:45 Dose: 50 mcg Heparin Sodium (Porcine) (Heparin Flush 10 Units/Ml 5 Ml Syringe) 2 ml IV Q12 [facility] Last Admin: 09/05/22 16:49 Dose: Not Given Acetaminophen (Ofirmev) 1,000 mg in 100 mls @ 200 mls/hr IV Q8 TIFFANIE; Protocol Last Admin: 09/05/22 14:54 Dose: 200 mls/hr Lactated Ringer's (Lactated Ringers) 1,000 mls @ 75 mls/hr IV .[id number] TIFFANIE Last Admin: 09/05/22 09:05 Dose: 75 mls/hr Naloxone HCl (Naloxone Hcl 0.4 Mg/Ml Vial) 0.4 mg IV Q10M PRN PRN Reason: Opiate Reversal Ondansetron HCl (Ondansetron 4 Mg/2 Ml Vial) 4 mg IV Q6HP PRN PRN Reason: Nausea And Vomiting Last Admin: 09/04/22 11:33 Dose: 4 mg Oxycodone HCl (Oxycodone Hcl 5 Mg Tablet) 5 - 10 mg PO Q4HP PRN; Protocol PRN Reason: Per Pain Protocol Last Admin: 09/05/22 13:25 Dose: 5 mg Promethazine HCl (Promethazine 25 Mg/Ml Vial) 12.5 mg IV Q4HP PRN PRN Reason: Nausea And Vomiting Last Admin: 09/05/22 01:05 Dose: 12.5 mg Senna (Sennosides 1 Tablet) 2 tab PO HS PRN PRN Reason: constipation Last Admin: 09/04/22 20:57 Dose: 2 tab Sodium Chloride (0.9 % Sodium Chloride 10 Ml Syringe) 10 ml IV Q8 TIFFANIE Last Admin: 09/05/22 14:56 Dose: 10 ml Sodium Chloride (0.9 % Sodium Chloride 10 Ml Syringe) 10 ml IV Q12 TIFFANIE Last Admin: 09/05/22 09:11 Dose: 10 ml Sodium Chloride (0.9 % Sodium Chloride 10 Ml Syringe) 10 ml IV UD PRN PRN Reason: FLUSH Last Admin: 09/05/22 11:37 Dose: 10 ml A/P Assessment and plan (1) Pancreatitis, acute: Assessment and plan: Reviewed case with Dr. Pantoja. Encouraged patient to reconsider [place] or NG tube feeding, may need to increase pain management with this modality. She was given both my office number and cell phone number to schedule follow up as an outpatient for pain control and to schedule pancreatic stent removal in 6 weeks. She and her sister appear to understand this plan. Status: Acute Time Spent With Patient Time: Total time spent is greater than 50% in coordination of care (as documented) at patient's floor/unit and/or counseling patient: Initial: Total time with patient: 40 - 54 minutes
[2022-09-06] MEDS: oxyCODONE HCL 5 MG TABLET PO PRN ×4 (01:14→14:24)
[2022-09-06] MEDS: LACTATED RINGERS 1,000 ML IV SCH ×3 (01:59→14:06)
--- NOTE | 2022-09-06 02:43 | XRay Report ---
CLINICAL INFORMATION: Biliary leak COMPARISON: None. FINDINGS: The distal common bile duct was successfully cannulated and injected. Bowel is not identified. The stent was successfully placed. IMPRESSION: Common bile duct bile leak successfully treated with stenting. Interpreted and Authenticated by: Sajan Morton 09/06/22
[2022-09-06] MEDS: fentaNYL 100 MCG/2 ML VIAL IV PRN ×2 (03:22→14:04)
[2022-09-06] MEDS: 0.9 % SODIUM CHLORIDE 10 ML SYRINGE IV SCH ×3 (05:12→13:56)
[2022-09-06] MEDS: ACETAMINOPHEN 1,000 MG/100 ML BAG IV SCH ×2 (06:04→13:29)
[2022-09-06 06:27] LABS: ALT/SGPT 31 U/L (<40); AST/SGOT 33 U/L (<32); Albumin 3.7 gm/dL (3.2-5.2); Albumin/Globulin Ratio 1.1 (1.0-2.3); Alkaline Phosphatase 95 U/L (39-117); Bilirubin,Direct 0.2 mg/dL (<0.3); Bilirubin,Total 0.6 mg/dL (0.1-1.0); Blood Urea Nitrogen 2 mg/dL (6-20); Calcium 8.1 mg/dL (8.6-10.4); Carbon Dioxide 16 mmol/L (22-30); Chloride 97 mmol/L (96-108); Globulin 3.3 gm/dL (2.2-3.7); Glomerular Filtration Rate 124; Glucose 77 mg/dL (70-105); Lactate Dehydrogenase 219 U/L (135-225); Phosphorous 2.3 mg/dL (2.5-4.5); Triglycerides 129 mg/dL (<150); Uric Acid 7.4 mg/dL (2.5-8.0)
[2022-09-06 06:30] LABS: Basophils # (Auto) 0.05 K/mcL (0.00-0.30); Basophils % (Auto) 0.3 % (0.0-2.0); Eosinophils # (Auto) 0.16 K/mcL (0.00-0.70); Eosinophils % (Auto) 1.1 % (0.0-7.0); Hematocrit 33.4 % (34.1-44.9); Hemoglobin 11.3 g/dL (11.2-15.7); Lymphocytes # (Auto) 0.87 K/mcL (1.50-4.80); Lymphocytes % (Auto) 5.9 % (15.5-49.0); Mean Cell Volume 93.3 fL (80.0-100.0); Mean Corpuscular HGB Conc 33.8 g/dL (31.0-36.0); Mean Platelet Volume 10.5 fL (8.8-12.5); Monocytes # (Auto) 1.02 K/mcL (0.10-0.90); Monocytes % (Auto) 6.9 % (1.0-12.0); Neutrophils % (Auto) 85.1 % (38.0-78.0); Platelet Count 319 K/mcL (140-440); RBC 3.58 M/mcL (3.59-5.38); Red Cell Distribution Width 11.9 % (11.5-14.5); WBC 14.8 K/mcL (4.5-11.0)
[2022-09-06] MEDS: ENOXAPARIN 40 MG/0.4 ML SYRINGE SQ SCH (10:20)
--- NOTE | 2022-09-06 13:01 | Discharge Summary ---
Discharge Provider Provider IMPORTANT FOLLOW-UP INFORMATION FOR PCP: Patient information: Note initiated : 09/06/22 at 1:00 pm Service Date, if different from initiated Date: [] Patient: Anyi Zhang 37 y/o F admitted on 08/31/22 for ERCP w/ [facility]. Chief Complaint: [Abdomen pa] Date of admission: 08/31/22 13:50 Discharge date: 09/06/22 Primary care physician: Faiza Vaca Consults: 08/30/22 17:24 Consult to Physician [CONS] Routine Comment: Consulting Provider: Rich Curtis Reason For Exam: Physician to Consult Consult to Physician [CONS] Routine Comment: Consulting Provider: Jose Pantoja Reason For Exam: Physician to Consult Attending physician on discharge: Jasmit Karina COURSE Hospital Course Hospital course: Principal diagnosis: Acute pancreatitis after bile leak Interval history: Ms. Zhang is a 37 year old Female with with a history of cholelithiasis who recently underwent a laparoscopic cholecystectomy. Early on the day of this admission, the patient developed severe abdominal pain for which she was seen at the [facility] emergency department. The patient was found to have a biliary leak, likely a complication from the recent cholecystectomy. An ERCP was attempted to stop the leak at that hospital however was not successful. The patient was transferred to [facility] at Dr. Pantoja's request to perform an ERCP and attempt to stop the biliary leak. Hospital medicine was later notified of this plan, I was reluctant to accept this patient given the failed ERCP at the [facility] however Dr. Pantoja felt the chances of complications were low and that he would be able to stop the biliary leak. The patient underwent repeat ERCP soon after arrival. Dr. Freeman feels that he was able to stop the leak with a stent placement. Following the ERCP, the patient will be admitted for observation following the procedure. 08/31 This morning the patient reported her abdominal pain had improved significantly. Lipase was modestly elevated however gastroenterology did not feel that was unexpected given the recent procedures. Gastroenterology felt the patient was ready to discharge and discharge orders were placed however the patient later developed epigastric abdominal pain similar to when she first presented to the emergency department. Discharge canceled. Abdominal 1 view x- ray ordered and did not show any acute changes. Lipase resulted significantly higher in the afternoon and a CT abdomen pelvis with IV contrast showed the pancreas to be somewhat edema at this, especially in the pancreatic head and pancreatic body. There was also intraperitoneal fluid in the pelvis and inflammatory changes and fluid within the gallbladder fossa, twan hepatis and peripancreatic spaces. Patient's abdominal pain is likely secondary to acute pancreatitis secondary to the recent ERCPs. IV fluids were increased,. Dilaudid IV as needed was increased however the patient felt that she had spasms secondary to Dilaudid therefore this was changed to fentanyl IV as needed. The patient was transferred to the PCU for close monitoring. 09/01 Vitals stable overnight, abdominal pain about the same as yesterday. Fentanyl working better for pain control and Dilaudid but wearing off quickly. Scheduled acetaminophen IV every 8 hours. Increase fentanyl frequency, fentanyl [employer]LE is not available per pharmacy. Continue IV fluid and close monitoring. 09/02 High-grade temperatures overnight, white blood cell count increased to 17.1, these changes are likely secondary to acute pancreatitis not infection. Patient's abdominal discomfort appears to have plateaued. Continue analgesics, IV fluids, clear liquid diet and advance as tolerated and supportive cares. 09/03 Temperature trend has improved overall, mild improvement in leukocytosis. Replaced potassium today. Modest improvement since yesterday overall. Advance to full liquid diet as tolerated. Continues on Ringer's lactate for IV fluid, analgesics. 09/04 Afebrile overnight, stable vitals, leukocytosis improving. Potassium low normal today, will supplement. Hemoglobin downtrending, likely dilutional anemia. Abdominal pain has improved overall. Will advance to GI soft transitional diet today. Required oxygen supplementation overnight but on room air this morning. Chest x-ray showing bilateral pleural effusions, discontinued IV fluids. 09/05: The patient continues to complain of severe abdominal pain. She is unable to tolerate p.o. intake. CT scan appears much worse. Contacted GI. 09/06: No PICC nurses available, patient unable to start nutrition. WBC up to 14, low grade temp w/ Tmax 99.3. Labs also point towards AG MA 2/2 starvation ketosis. Abdomen remains tender on palpation. Discussed case w/ outside hospital who kindly agree to accept the patient. Discharge diagnosis: Acute pancreatitis Time Spent with Patient Time attestation: Total time spent providing and/or coordinating discharge services: Time spent: Greater than 30 minutes EXAM Constitutional Vitals: Temp Pulse Resp BP Pulse Ox O2 Del Method O2 Flow Rate 98.5 F 97 H 16 136/80 95 Room Air 95 09/06/22 08:00 09/06/22 08:00 09/06/22 08:00 09/06/22 08:00 09/06/22 08:00 09/06/22 08:00 09/04/22 20:00 General appearance: average body habitus Head Head exam: Present atraumatic, normal inspection and normocephalic Eye Eye exam: Present EOMI, normal appearance and PERRL; Absent conjunctival injection ENT ENT exam: Present normal exam; Absent mucous membranes dry Neck Neck exam: Present full ROM; Absent lymphadenopathy Respiratory Respiratory exam: Present normal respiratory exam and CTAB; Absent decreased breath sounds, respiratory distress or wheezes Cardiovascular Cardiovascular exam: Present normal rate and rhythm and RRR; Absent JVD GI/Abdominal GI/Abdominal exam: Present normal bowel sounds, soft, distended and tenderness; Absent diminished bowel sounds, guarding, mass or rebound Neurological Exam Neurological exam: Present alert, CN II-XII intact and oriented X3 Psychiatric Psychiatric exam: Present normal affect and normal mood Skin Skin exam: Present intact and warm; Absent erythema, pallor, petechiae or rash Discharge Data Data Completed and Pending Labs on day of discharge: Labs from last 24 hours 09/06/22 09/06/22 05:23 04:00 WBC 14.8 H RBC 3.58 L Hgb 11.3 Hct 33.4 L MCV 93.3 MCH 31.6 MCHC 33.8 RDW 11.9 Plt Count 319 MPV 10.5 Immature Gran % (Auto) 0.7 H Neut % (Auto) 85.1 H Lymph % (Auto) 5.9 L Clarke % (Auto) 6.9 Eos % (Auto) 1.1 Baso % (Auto) 0.3 Lymph # (Auto) 0.87 L Clarke # (Auto) 1.02 H Eos # (Auto) 0.16 Baso # (Auto) 0.05 Immature Gran # 0.11 H Absolute Neutrophils 12.63 H Sodium 131 L Potassium 3.8 Chloride 97 Carbon Dioxide 16 L Anion Gap 18.0 H BUN 2 L Creatinine 0.5 L GFR Calculation 124 Glucose 77 Uric Acid 7.4 Calcium 8.1 L Phosphorus 2.3 L Magnesium 1.8 Total Bilirubin 0.6 Direct Bilirubin 0.2 GGT 45 H AST 33 H ALT 31 Alkaline Phosphatase 95 Lactate Dehydrogenase 219 Total Protein 7.0 Albumin 3.7 Globulin 3.3 Albumin/Globulin Ratio 1.1 Triglycerides 129 Discharge Plan Patient/Caregiver Discharge Instructions Activity: increase activity as tolerated Diet: NPO Instructions: Hydrocodone/Acetaminophen (By mouth), Pancreatitis (ED), Pancreatitis (GEN), ERCP (Endoscopic Retrograde Cholangiopancreatography) (DC) Activity Restrictions/Additional Instructions: Resume regular diet as tolerated. Take all meals up in chair, sitting at 90 degrees, to prevent aspiration. Increase activity as tolerated. Continue fall precautions. Follow-up with Gastroenterology. Contact the office on Friday, 09/02 to schedule. Take all medication as directed. Your prescription is with your discharge paperwork. Pain medication can cause constipation; take an over the counter stool softener and/or laxative while on pain medication. 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 Return to ER for fever, chills, uncontrolled pain, inability to urinate or have a bowel movement, nausea and/or vomiting, swelling, redness, signs of infection, shortness of breath, chest pain, return of symptoms, or other acute symptom. This discharge packet is provided to you to help keep you informed about your care. We want to ensure you get everything you need when you go home. You will also be receiving a call from us in a few days to follow up with you and see how you are doing since your discharge. This gives us a chance to listen to any concerns you maybe experiencing since you were discharged or any additional needs you may have, as well as providing us feedback on your care experience. We strive to always provide excellent care and thank you for your feedback and for choosing [facility]. Prescriptions: New hydrocodone-acetaminophen 5-325 mg Tablet 1 tab PO Q4HP PRN (Reason: Per Pain Protocol) Qty: 5 0RF Follow Up Plan Follow up with: Faiza Vaca MD [Primary Care Provider] - (Contact the office on Friday, 09/02, to schedule.) Jose Pantoja MD [Physician] - (Post hospital follow-up for GI bleed secondary to duodenal ulcer. Contact the office on Friday, 09/02, to schedule.) Patient Disposition: [facility] Overall status at discharge: patient is progressing back to baseline Discharge Orders: Discharge Order (Routine); Ordered 09/06/22 Ordered By: Yessi Collins
[2022-09-06] MEDS: PROMETHAZINE 25 MG/ML VIAL IV PRN (14:04)
== END 2022-09-06 14:30 | disposition short-term general hospital (02) | DRG 444 ==
LOC: ED 16:51 → SSSU 17:15 → INTOOBSV 18:15 → MEDSUR 18:15 → ICU 08-31 20:25
PROVIDERS: ADMIT Internal Medicine; ATTEND Internal Medicine

== ENCOUNTER 2022-09-06 15:13 | Inpatient (IN) ==
[2022-09-06] MEDS ORDERED: ACETAMINOPHEN 325 MG TABLET PO PRN (16:52)
[2022-09-06] MEDS ORDERED: KETOROLAC 10 MG TABLET PO PRN (16:52)
[2022-09-06] MEDS ORDERED: ONDANSETRON 4 MG/2 ML VIAL IV PRN (16:52)
[2022-09-06] MEDS ORDERED: morphine 4 MG/ML VIAL IV PRN (16:52)
[2022-09-06] MEDS ORDERED: oxyCODONE/APAP 5/325MG TABLET PO PRN (16:52)
[2022-09-06] MEDS ORDERED: 0.9 % SODIUM CHLORIDE 1,000 ML IV SCH (17:00)
[2022-09-06] MEDS ORDERED: oxyCODONE IR 5 MG TABLET PO PRN (19:08)
[2022-09-06] MEDS ORDERED: PROMETHAZINE 25 MG/ML VIAL IV PRN (19:09)
[2022-09-06] MEDS ORDERED: fentaNYL 100 MCG/2 ML VIAL IV PRN (19:09)
[2022-09-06] MEDS ORDERED: ACETAMINOPHEN 1,000 MG/100 ML BAG IV SCH (20:00)
[2022-09-06] MEDS ORDERED: SENNOSIDES 1 TABLET PO SCH (21:00)
[2022-09-06] MEDS ORDERED: DOCUSATE SODIUM 100 MG CAPSULE PO SCH (21:00)
[2022-09-06] MEDS ORDERED: 0.9 % SODIUM CHLORIDE 10 ML SYRINGE IV SCH (22:00)
[2022-09-07] MEDS ORDERED: ENOXAPARIN 40 MG/0.4 ML SYRINGE SQ SCH (09:00)
== END 2022-09-06 21:00 | disposition other institution (70) | DRG 392 ==
LOC: MEDSUR 15:22
PROVIDERS: ADMIT Student in an Organized Health Care Education/Training Program; ATTEND Student in an Organized Health Care Education/Training Program